=== PATIENT | female | born 1990 | race Caucasian/White ===

== ENCOUNTER 2020-09-03 07:20 | Outpatient (CLI) | payer MEDICAID ==
[~2020-09-03] VITALS: Ht 172.7 cm; Wt 91.0 kg
[~2020-09-03 07:20] MED LIST: CPR500T PO; METR500T PO; ONDAN4ODT PO; PREN1TAB39
--- NOTE | 2020-09-03 07:40 | NUR ---
BRAD HOWELL presented to unit via ambulation from ED, accompanied by S.O., with c/o LEAKING FLUID,. BRAD HOWELL weighed, gowned, voided, and to bed. EFHM and TOCO applied, VS taken. BRAD HOWELL oriented to bed controls, call light, TV, heat, and A/C controls. Dr. Mcgraw on unit, notified of pt arrival and c/o leaking fluid. familiar with pt and expecting phone call with update.
[2020-09-03 08:00] VITALS: BP 127/77
--- NOTE | 2020-09-03 08:26 | NUR ---
Notified Dr Mcgraw per phone of cervical exam of 2 cms., mild contractions approximately 5 minutes apart - pt does not feel them. Will watch an additional hour , recheck, UA and call physician. 0942 Dr Mcgraw notified per phone of unchanged cervical exam by Esteban Christian RN and UA results. Ordered IV fluids and continue to observe. IV attempted x 2. Pt complaining of pain from IV sticks and does not want IV. 1056 Dr Mcgraw notified of the above. He will see her at noon. 1230 Dr Mcgraw present - 3 cms.. Pt does not want to be induced. Having only occasional contractions. Physician will re-check pt later in afternoon. pattern reassuring with baseline of 140's and accelerations. 1420 Dr Mcgraw present - SVE unchanged. Plans to discharge.
[2020-09-03 08:40] LABS: BILIRUBIN,URINE NEGATIVE (NEGATIVE); CLARITY,URINE CLEAR; COLOR,URINE YELLOW; GLUCOSE, URINE (UA) NEGATIVE (NEGATIVE); KETONES,URINE NEGATIVE (NEGATIVE); LEUKOCYTE ESTERASE ,URINE NEGATIVE (NEGATIVE); NITRITE,URINE NEGATIVE (NEGATIVE); PROTEIN,URINE NEGATIVE (NEGATIVE)
[2020-09-03 08:49] LABS: BACTERIA,URINE MODERATE /HPF
[2020-09-03] MEDS ORDERED: D5 LR IV SOLUTION 1,000 ML IV SCH ×2 (10:00→11:00)
[2020-09-03] MEDS ORDERED: D5 LR IV SOLUTION 1,000 ML IV ONE (10:02)
[2020-09-03 13:05] VITALS: BP 134/65
[2020-09-03] MEDS ORDERED: PREN1TAB79 PO (14:39)
--- NOTE | 2020-09-03 14:42 | NUR ---
Outpt home instructions given. Pt verbalized understanding. Ambulating to exit with S.O.
== END 2020-09-03 14:42 | disposition home or self-care (01) ==
LOC: WSo 07:20 → LDRP 07:21 → WSo 14:42
PROVIDERS: ATTEND Obstetrics & Gynecology
DX: O42.92 Full-term premature rupture of membranes, unspecified as to length of time between rupture and onset of labor (principal); Z3A.38 38 weeks gestation of pregnancy
CPT/HCPCS: 81000; 87088

== ENCOUNTER 2020-09-09 23:33 | Outpatient (CLI) | payer MEDICAID ==
[~2020-09-09] VITALS: Ht 170.2 cm; Wt 91.7 kg
[~2020-09-09 23:33] MED LIST changes: +PREN1TAB79 PO
--- NOTE | 2020-09-09 23:40 | NUR ---
BRAD HOWELL presented to unit via wc from ED, accompanied by adult male , with c/o INDUCTION, pt is not scheduled and came in on her own.Pt to be treated as op until further orders from physician. BRAD HOWELL weighed, gowned, voided, and to bed. EFHM and TOCO applied, VS taken. BRAD HOWELL oriented to bed controls, call light, TV, heat, and A/C controls. above and further assessments completed per this rn.
--- NOTE | 2020-09-10 | NUR ---
notified of pt arrival, gestation, request for induction at this time, pt denies feeling ctx, no ctx have been noted as of yet, sve 3.5cm as in office yesterday. Orders for nst and discharge and to educate pt to call office in am for scheduling of induction.
[2020-09-10 00:11] VITALS: BP 131/75
[2020-09-10 00:13] VITALS: BP 131/75
--- NOTE | 2020-09-10 00:19 | NUR ---
Discharge packet given and explained, understanding voiced, pt aware to call office in am.
[2020-09-10 00:20] VITALS: BP 131/75
--- NOTE | 2020-09-10 00:25 | NUR ---
Pt ambulatory off unit at this time accompanied by adult male.
--- NOTE | 2020-09-10 07:58 | Physician Query-Final Dx ---
KATHLEEN BARRERA 09/10/20 0758: Clinic Account Progress/Dx Physician Query: Please give diagnosis Please include # weeks gestation Date of Service Sep 09, 2020 at 23:33 NIRMAL PERAZA MD 09/10/20 0836: Clinic Account Progress/Dx DIAGNOSIS: Diagnosis 39 WEEKS - FALSE LABOR KATHLEEN BARRERA Sep 10, 2020 07:58 NIRMAL PERAZA MD Sep 10, 2020 08:36
[2020-09-11] MEDS ORDERED: OXYC1TAB87 PO (08:26)
[2020-09-11] MEDS ORDERED: DOCU-143 PO (08:26)
[2020-09-11] MEDS ORDERED: IBUP-1780 PO (08:26)
== END 2020-09-10 00:25 | disposition home or self-care (01) ==
LOC: WSo 23:33 → LDRP 23:34 → WSo 09-10 00:25
PROVIDERS: ATTEND Obstetrics & Gynecology
DX: O47.1 False labor at or after 37 completed weeks of gestation (principal); Z3A.39 39 weeks gestation of pregnancy
CPT/HCPCS: 99212

== ENCOUNTER 2020-09-10 16:24 | Inpatient (IN) | payer MEDICAID ==
[2020-09-10] VITALS (7 sets, daily range): BP systolic 127–150; BP diastolic 57–123
[~2020-09-10] VITALS: Ht 170.2 cm; Wt 91.5 kg
--- NOTE | 2020-09-10 16:13 | NUR ---
BRAD HOWELL presented to unit via AMB from HOME, accompanied by S.O., with c/o INDUCTION. BRAD HOWELL weighed, gowned, voided, and to bed. 1634 EF and TOCO applied, VS taken. BRAD HOWELL oriented to bed controls, call light, TV, heat, and A/C controls.
[2020-09-10] MEDS: D5 LR IV SOLUTION 1,000 ML IV SCH ×2 (16:55→23:50)
[2020-09-10 17:01] LABS: BASOPHILS % (AUTO) 0 % (0-10); EOSINOPHILS % (AUTO) 0 % (0-10); HEMATOCRIT 28 % (35-52); HEMOGLOBIN 8.2 g/dL (11.5-16.0); LYMPHOCYTES # (AUTO) 2.5 10^3/uL (1.0-4.0); LYMPHOCYTES % (AUTO) 22 % (12-44); MEAN CORPUSCULAR HEMOGLOBIN 21 pg (25-34); MEAN CORPUSCULAR HGB CONC 29 g/dL (32-36); MEAN CORPUSCULAR VOLUME 73 fL (80-99); MEAN PLATELET VOLUME 10.5 fL (9.0-12.2); MONOCYTES # (AUTO) 0.6 10^3/uL (0.0-1.0); MONOCYTES % (AUTO) 5 % (0-12); NEUTROPHILS # (AUTO) 8.3 10^3/uL (1.8-7.8); NEUTROPHILS % (AUTO) 72 % (42-75); PLATELET COUNT 273 10^3/uL (130-400); WHITE BLOOD COUNT 11.6 10^3/uL (4.3-11.0)
--- NOTE | 2020-09-10 17:01 | History & Physical ---
History and Physical Date Seen by Provider: Sep 10, 2020 Time Seen by Provider: 16:57 This patient is a 30-year-old 3 para 1 A1 white female who presents with complaint of contractions pain and pressure. She was directed to labor and delivery by my office for observation and induction of labor. Patient's social history is significant for her father currently on hospice with very limited time remaining in his life. This patient would like for her father to see his grand child before he . This patient is past 39 weeks gestation and has a very favorable cervix. She denies rupture membranes or bleeding. Her GBS culture was negative. Allergies are none Medications are vitamins Medical social and surgical history is all per the antepartum record HEENT exam is normal Neck is supple no lymphadenopathy no thyromegaly Abdomen is gravid soft nontender nondistended Extremities show no clubbing cyanosis. There is no Homans' sign. Pelvic exam when last checked was 3 cm dilated greater than 50% effaced 0 station with a soft anterior cervix which equates to the Mckeon score of 8 or more Assessment and plan term at 39+ weeks gestation admitted for observation for labor and in the absence of spontaneous labor we will induce the patient in the morning. Patient has a poor social situation with her father on his bed. 39 weeks plus gestation admitted for labor and delivery plan for induction if not in spontaneous labor Allergies and Home Medications Allergies Coded Allergies: No Known Drug Allergies (Unverified , 08/02/09) Home Medications Vit W-Ca,Fe,FA(<1 mg) 1 Each Tablet, 1 EACH PO DAILY, (Reported) Patient Home Medication List Home Medication List Reviewed: Yes NIRMAL PERAZA MD Sep 10, 2020 17:01
[2020-09-11] VITALS (21 sets, daily range): BP systolic 96–178; BP diastolic 54–110
[2020-09-11] MEDS: OXYTOCIN PRE-MIX DRIP 500 ML IV SCH ×2 (06:34→07:01)
--- NOTE | 2020-09-11 08:21 | Progress Note ---
Standard Progress Note Progress Notes/Assess & Plan Date Seen by a Provider: Sep 11, 2020 Time Seen by a Provider: 08:19 Progress/Assessment & Plan Patient is without complaint. She has had occasional contractions throughout the night. She denies rupture membranes or bleeding. She reports that her father is stable Vital Signs Date Time Temp Pulse Resp B/P (MAP) Pulse Ox O2 Delivery O2 Flow Rate FiO2 09/11/20 06:40 36.4 88 18 116/60 (78) Room Air 09/11/20 05:40 77 18 103/54 (70) Room Air 09/11/20 04:40 112 18 96/57 (70) Room Air 09/11/20 03:40 66 18 117/64 (81) Room Air 09/11/20 02:40 76 18 98/59 (72) Room Air 09/11/20 01:40 75 18 101/58 (72) Room Air 09/11/20 00:35 82 20 124/59 (80) Room Air 09/10/20 23:40 36.2 82 20 147/57 (87) Room Air 09/10/20 22:40 99 20 127/70 (89) Room Air 09/10/20 21:50 36.5 102 20 136/62 (86) 98 Room Air 09/10/20 21:40 36.7 130 22 150/123 (132) Room Air 09/10/20 17:47 36.5 79 18 127/79 (95) 99 Room Air 09/10/20 17:00 36.4 95 18 97 Room Air 09/10/20 16:38 36.4 95 18 134/73 (93) 97 Room Air I & O 09/11/20 07:00 Intake Total 2000 ml Balance 2000 ml Vital signs are stable. Patient is afebrile. Pelvic exam shows the cervix is 3 to 4 cm dilated 80% effaced -1 to -2 station vertex with a bulging bag. Amniotomy is performed releasing clear fluid monitor shows normal heart rate pattern with occasional contractions Assessment and plan 39+ weeks gestation and early labor. Amniotomy is perf ormed and we will continue with Pitocin to promote labor and anticipate a vaginal delivery NIRMAL PERAZA MD Sep 11, 2020 08:21
[2020-09-11] MEDS ORDERED: DOCU-143 PO (08:26)
[2020-09-11] MEDS ORDERED: IBUP-1780 PO (08:26)
[2020-09-11] MEDS ORDERED: OXYC1TAB87 PO (08:26)
--- NOTE | 2020-09-11 08:26 | Discharge Inst-Surgical ---
Discharge Inst-Surgical Depart Medication/Instructions New, Converted or Re-Newed RX: RX on Chart Consults/Follow Up Patient Instructions: As directed Orders & Referrals Follow Up Appt: Call to make follow up appt. for patient in 4 weeks. Activity Per routine post vaginal delivery instructions. Please call in RX to patient pharmacy. Diet as tolerated Patient may shower or tub bathe as desired. Activity Activity as Tolerated: No NIRMAL PERAZA MD Sep 11, 2020 08:26
[2020-09-11] MEDS ORDERED: BUPIVACAINE 0.25% 30 ML (SENSORCAINE) VIAL ONE (08:54)
[2020-09-11] MEDS ORDERED: fentaNYL INJECTION 100 MCG/2 ML AMP ONE (08:55)
[2020-09-11] MEDS ORDERED: fentaNYL 2 mcg/ml BUPIVA 0.125 0 ML ONE (09:05)
[2020-09-11] MEDS ORDERED: LIDOCAINE/EPI 2% 1:200,00 (XYLOCAINE) 10 ML VIAL ONE (09:28)
[2020-09-11] MEDS ORDERED: BENZOCAINE/MENTHOL (DERMOPLAST) 60 ML CAN TP PRN (10:15)
[2020-09-11] MEDS ORDERED: KETOROLAC 30 MG/ML VIAL IVP SCH (10:15)
[2020-09-11] MEDS ORDERED: ONDANSETRON 4 MG/2 ML (SDV) Z0FRAN IVP PRN (10:15)
[2020-09-11] MEDS ORDERED: MEASLES,MUMPS,RUBELLA 1 EA INJ SC ONE (10:15)
[2020-09-11] MEDS ORDERED: OXYTOCIN PRE-MIX DRIP 500 ML IV SCH (10:15)
[2020-09-11] MEDS ORDERED: TETANUS,DIPTH,PERTUSS P/F (BOOSTRIX) 0.5 ML VIAL IM ONE (10:15)
[2020-09-11] MEDS: KETOROLAC 30 MG/ML VIAL IVP SCH ×2 (10:55→18:08)
[2020-09-11] MEDS ORDERED: WITCH HAZEL(TUCKS) 40 EA JAR ONE (11:18)
[2020-09-11] MEDS ORDERED: WITCH HAZEL(TUCKS) 40 EA JAR TOP PRN (11:30)
--- NOTE | 2020-09-11 11:40 | NUR ---
Pt assisted up to bathroom without incident. +void. Pericare demonstrated. Pad and panties changed. Fresh gown on. Pt assisted to wheelchair. Wheeled to room 312 accompanied by RNs, , and S.O. Pt and S.O. oriented to room and call light. packet explained. No questions or concerns voiced at this time
[2020-09-11] MEDS: oxyCODONE/APAP 5/325MG (PERCOCET 5) TABLET PO PRN ×2 (11:57→20:21)
[2020-09-11 12:23] LABS: AMPHETAMINE SCREEN, URINE NEGATIVE (NEGATIVE); BARBITURATE SCREEN URINE NEGATIVE (NEGATIVE); BENZODIAZEPINES SCREEN URINE NEGATIVE (NEGATIVE); CANNABINOID SCREEN, URINE NEGATIVE (NEGATIVE); COCAINE SCREEN URINE NEGATIVE (NEGATIVE); METHADONE STAT NEGATIVE (NEGATIVE); METHAMPHETAMINE SCREEN URINE S NEGATIVE (NEGATIVE); OPIATE SCREEN URINE NEGATIVE (NEGATIVE); OXYCODONE STAT NEGATIVE (NEGATIVE); PROPOXYPHENE STAT NEGATIVE (NEGATIVE); TRICYCLIC ANTIDEPRESSANTS SCRE NEGATIVE (NEGATIVE)
[2020-09-11] MEDS ORDERED: NICOTINE 21 MG (NICODERM) PATCH TD SCH (14:15)
--- NOTE | 2020-09-11 14:53 | OPERATIVE REPORT ---
DATE OF SERVICE: 09/11/2020 DELIVERY NOTE The patient delivered by term spontaneous vaginal delivery at 39+ weeks gestation a viable male infant with Apgars of 8 and 9 at 1 and 5 minutes respectively, weight of 5 pounds 14 ounces, time of 09:24 and a cord blood pH of 7.24. The was delivered over an intact perineum under no analgesia. The had a single nuchal cord that was easily released and the delivered atraumatically. The was bulb suctioned on delivery of the head and again on completion of delivery. Umbilical cord when pulseless was doubly clamped, father cut the cord, the baby was passed to mom's abdomen. Cord bloods were obtained. The placenta delivered spontaneously Perdomo. It was normal with a 3-vessel cord. The cervix, vagina, rectum, and perineum were examined and found intact, except for a 0.5 cm hymenal tear at the 5 o'clock position of the hymen. There was some pulsatile bleeding there, so a single [id number] suture of 3-0 Vicryl Rapide was placed under local analgesia at that point to effect hemostasis. On completion of the delivery and repair, sponge and needle counts were correct. Blood loss was around 300 mL. The patient tolerated the delivery well and remained in the LDR for recovery. The baby remained with the mom. Job ID: [id number] DocumentID: [id number] Dictated Date: 09/11/2020 10:30:33 [employer] Date: 09/11/2020 14:53:28 Dictated By: NIRMAL PERAZA MD
--- NOTE | 2020-09-11 20:15 | NUR ---
Pt put functional manager light. Pt just finished with stork dinner. Requesting pain meds. Assessment completed. pain meds given. Pt denies any further needs. will continue to monitor.
[2020-09-11] MEDS: DOCUSATE SODIUM 100 MG (COLACE) CAP PO SCH (20:21)
[2020-09-11] MEDS ORDERED: IBUPROFEN 800 MG (MOTRIN) TAB PO ONE (23:26)
[2020-09-11] MEDS: IBUPROFEN 800 MG (MOTRIN) TAB PO SCH (23:30)
[2020-09-12 01:39] VITALS: BP 108/72
[2020-09-12] MEDS ORDERED: CALCIUM CARBONATE 500 MG (TUMS) TAB.CHEW ONE (02:03)
[2020-09-12 05:01] VITALS: BP 100/57
[2020-09-12] MEDS ORDERED: CALCIUM CARBONATE 500 MG (TUMS) TAB.CHEW PO ONE (06:00)
[2020-09-12] MEDS: IBUPROFEN 800 MG (MOTRIN) TAB PO SCH (06:59)
--- NOTE | 2020-09-12 07:30 | NUR ---
Dr. Mcgraw here to see pt. Plan for discharge today
--- NOTE | 2020-09-12 07:36 | Progress Note ---
Standard Progress Note Progress Notes/Assess & Plan Date Seen by a Provider: Sep 12, 2020 Time Seen by a Provider: 07:34 Progress/Assessment & Plan Patient is without complaint. She has had occasional contractions throughout the night. She denies rupture membranes or bleeding. She reports that her father is stable Vital Signs Date Time Temp Pulse Resp B/P (MAP) Pulse Ox O2 Delivery O2 Flow Rate FiO2 09/11/20 06:40 36.4 88 18 116/60 (78) Room Air 09/11/20 05:40 77 18 103/54 (70) Room Air 09/11/20 04:40 112 18 96/57 (70) Room Air 09/11/20 03:40 66 18 117/64 (81) Room Air 09/11/20 02:40 76 18 98/59 (72) Room Air 09/11/20 01:40 75 18 101/58 (72) Room Air 09/11/20 00:35 82 20 124/59 (80) Room Air 09/10/20 23:40 36.2 82 20 147/57 (87) Room Air 09/10/20 22:40 99 20 127/70 (89) Room Air 09/10/20 21:50 36.5 102 20 136/62 (86) 98 Room Air 09/10/20 21:40 36.7 130 22 150/123 (132) Room Air 09/10/20 17:47 36.5 79 18 127/79 (95) 99 Room Air 09/10/20 17:00 36.4 95 18 97 Room Air 09/10/20 16:38 36.4 95 18 134/73 (93) 97 Room Air I & O 09/11/20 07:00 Intake Total 2000 ml Balance 2000 ml Vital signs are stable. Patient is afebrile. Pelvic exam shows the cervix is 3 to 4 cm dilated 80% effaced -1 to -2 station vertex with a bulging bag. Amniotomy is performed releasing clear fluid monitor shows normal heart rate pattern with occasional contractions Assessment and plan 39+ weeks gestation and early labor. Amniotomy is perf ormed and we will continue with Pitocin to promote labor and anticipate a vaginal delivery This patient is without complaint. She is ambulating, voiding, tolerating oral intake well and has good pain control. Vital Signs Date Time Temp Pulse Resp B/P (MAP) Pulse Ox O2 Delivery O2 Flow Rate FiO2 09/12/20 05:01 36.5 72 18 100/57 (71) 98 Room Air 09/12/20 01:39 36.6 85 18 108/72 (84) 98 Room Air 09/11/20 21:00 36.5 87 18 111/60 (77) 98 Room Air 09/11/20 16:00 36.8 82 18 140/59 (86) 98 Room Air 09/11/20 11:29 36.3 83 18 119/70 (86) Room Air 09/11/20 10:34 81 18 118/73 (88) Room Air 09/11/20 10:19 89 18 116/75 (89) Room Air 09/11/20 10:12 87 18 127/73 (91) Room Air 09/11/20 10:04 142 18 178/110 (132) Room Air 09/11/20 09:05 92 18 128/85 (99) Room Air 09/11/20 08:50 99 18 134/78 (96) Room Air 09/11/20 08:35 72 18 121/73 (89) Room Air 09/11/20 08:20 75 18 139/63 (88) Room Air 09/11/20 08:05 89 18 127/60 (82) Room Air I & O 09/12/20 07:00 Intake Total 500 ml Balance 500 ml Vital signs are stable. Patient is afebrile. Fundus is firm below the umbilicus nontender. Extremities show no clubbing or cyanosis. There is no Homans' sign. Assessment and plan day #1 doing well. Plan is for routine care and consider discharge home today Final Diagnosis 39-week spontaneous vaginal delivery NIRMAL PERAZA MD Sep 12, 2020 07:36
[2020-09-12] MEDS ORDERED: NICOTINE PATCH REMOVAL TP SCH (08:59)
[2020-09-12 09:33] VITALS: BP 135/86
[2020-09-12] MEDS: DOCUSATE SODIUM 100 MG (COLACE) CAP PO SCH (09:35)
[2020-09-12] MEDS: oxyCODONE/APAP 5/325MG (PERCOCET 5) TABLET PO PRN (09:35)
--- NOTE | 2020-09-12 11:15 | NUR ---
Discharge instructions explained to pt per Chang Quezada RN, with copy provided to pt along with narcotic script. Pt notified of other scripts to be called to [facility] pharmacy as well as follow up appt. Pt verbalizes understanding of instructions and signs to verify.
--- NOTE | 2020-09-12 11:48 | NUR ---
Prescriptions called into [facility] pharmacy per pt request
--- NOTE | 2020-09-12 12:35 | NUR ---
Pt ambulates off unit to private vehicle with all personal belongings accompanied by RN, S.o. and infant. No s/s of distress noted.
== END 2020-09-12 12:35 | disposition home or self-care (01) | DRG 807 ==
LOC: LDRP 16:24
PROVIDERS: ADMIT Obstetrics & Gynecology; ATTEND Obstetrics & Gynecology
PROC: 10E0XZZ Delivery of Products of Conception, External Approach (ICD-10-PCS; principal; 2020-09-11)
PROC: 10907ZC Drainage of Amniotic Fluid, Therapeutic from Products of Conception, Via Natural or Artificial Opening (ICD-10-PCS; 2020-09-11)
PROC: 3E033VJ Introduction of Other Hormone into Peripheral Vein, Percutaneous Approach (ICD-10-PCS; 2020-09-11)
PROC: 0HQ9XZZ Repair Perineum Skin, External Approach (ICD-10-PCS; 2020-09-11)
DX: O80 Encounter for full-term uncomplicated delivery (principal); Z37.0 Single live birth; Z3A.39 39 weeks gestation of pregnancy; O70.0 First degree perineal laceration during delivery
CPT/HCPCS: 36415; 80306; 85025; 86850; 86900; 86901; 87635

== ENCOUNTER 2021-07-26 09:56 | Emergency (ER) | payer MEDICAID ==
[~2021-07-26] VITALS: Ht 172.7 cm; Wt 58.9 kg
[~2021-07-26 09:56] MED LIST changes: +DOCU-143 PO; +IBUP-1780 PO; +OXYC1TAB87 PO
[2021-07-26] MEDS ORDERED: AMOX500T2 PO (10:39)
[2021-07-26] MEDS ORDERED: NAPR-1071 PO (10:39)
--- NOTE | 2021-07-26 10:40 | ED EENT ---
History of Present Illness General Chief Complaint: Dental Problems/Pain Stated Complaint: DENTAL PAIN Nursing Triage Note: Pt c/o right lower side dental pain onset a few months ago, worsening the last few days. Source: patient Exam Limitations: no limitations (SHAWNA GIBSON APRN) History of Present Illness Date Seen by Provider: Jul 26, 2021 Time Seen by Provider: 10:34 Initial Comments To ER wtih c/o right lower dental pain for a few months worse for a few days no swelling or fevers and has not yet sought care for this stating "mindy been procrastinating". Timing/Duration: gradual Severity: moderate Location: dental Prearrival Treatment: no prearrival treatment Associated Symptoms: denies symptoms (SHAWNA GIBSON APRN) Allergies and Home Medications Allergies Coded Allergies: No Known Drug Allergies (Unverified , 08/02/09) Patient Home Medication List Home Medication List Reviewed: Yes (SHAWNA GIBSON APRN) Amoxicillin (Amoxicillin) 500 Mg Tablet, 500 MG PO TID Prescribed by: SHAWNA GIBSON on 07/26/21 1039 Docusate Sodium (Colace) 100 Mg Capsule, 100 MG PO BID Prescribed by: NIRMAL ORDONEZ on 09/11/20 0826 Ibuprofen (Ibuprofen) 800 Mg Tablet, 800 MG PO Q6H PRN for PAIN Prescribed by: NIRMAL ORDONEZ on 09/11/20 0826 Naproxen (Naprosyn) 500 Mg Tablet, 500 MG PO BID PRN for PAIN-MODERATE (5-7) Prescribed by: SHAWNA GIBSON on 07/26/21 1039 Oxycodone HCl/Acetaminophen (Percocet 5-325 mg Tablet) 1 Each Tablet, 1 TAB PO Q4H Prescribed by: NIRMAL ORDONEZ on 09/11/20 0826 Vit W-Ca,Fe,FA(<1 mg) ( Vitamins) 1 Each Tablet, 1 EACH PO DAILY, (Reported) Entered as Reported by: ARPAN PEARSON on 09/03/20 1439 Review of Systems Review of Systems Constitutional: see HPI Eyes: No Symptoms Reported Ears: No Symptoms Reported Nose: no symptoms reported Mouth: see HPI Throat: no symptoms reported Respiratory: no symptoms reported Cardiovascular: no symptoms reported Musculoskeletal: no symptoms reported (SHAWNA GIBSON APRN) Past Zyiniyj-Lpqioi-Lvxprx Hx Patient Social History Tobacco Use?: Yes Tobacco type used: Cigarettes Smoking Status: Current Everyday Smoker Substance use?: No Alcohol Use?: No (SHAWNA GIBSON APRN) Immunizations Up To Date PED Vaccines UTD: Yes (SHAWNA GIBSON APRN) Seasonal Allergies Seasonal Allergies: No (SHAWNA GIBSON APRN) Past Medical History Surgeries: No Respiratory: No Cardiac: No Neurological: No Reproductive Disorders: No Female Reproductive Disorders: Denies Sexually Transmitted Disease: No HIV/AIDS: No Genitourinary: No Gastrointestinal: No Musculoskeletal: Yes (2017 RIGHT HAND FX) Fractures Endocrine: No HEENT: No Loss of Vision: Denies Hearing Impairment: Denies Cancer: No Psychosocial: Yes Depression Integumentary: No Blood Disorders: No (SHAWNA GIBSON APRN) Family Medical History Alcoholism 19 FATHER Arthritis 19 FATHER Asthma 19 FATHER Cardiovascular disease 19 FATHER Completed stroke 19 FATHER 19 MOTHER Coronary thrombosis 19 FATHER Diabetes mellitus 19 FATHER MATERNAL GRANDMOTHER MATERNAL GRANDFATHER PATERNAL GRANDFATHER FH: CHF (congestive heart failure) 19 MOTHER FH: thyroid cancer 19 FATHER Hypertension 19 FATHER 19 MOTHER Myocardial infarction 19 FATHER Neoplasm 19 FATHER Respiratory disorder 19 FATHER (COPD) Thyroid disease 19 FATHER Physical Exam Vital Signs Vital Signs - First Documented (ZEUS DIOR MD) Height, Weight, BMI Height: '" Weight: lbs. oz. kg; 19.00 BMI Method:Stated General Appearance: WD/WN, no apparent distress Eyes: bilateral eye normal inspection, bilateral eye PERRL, bilateral eye EOMI Ears: right ear other (TM obscured by cerumen); bilateral ear auricle normal, bilateral ear canal normal Mouth/Throat: other (multiple fractured and carious teeth without drainable abscess or palpable/visible swelling) Neck: non-tender, full range of motion Respiratory: no respiratory distress, no accessory muscle use Gastrointestinal: normal bowel sounds, non tender Neurologic/Psychiatric: alert, normal mood/affect, oriented x 3 Skin: normal color, warm/dry (SHAWNA GIBSON APRN) Progress/Results/Core Measures Results/Orders Vital Signs/I&O 07/26/21 07/26/21 07/26/21 10:08 10:08 10:47 Temp 36.7 36.7 36.7 Pulse 84 84 Resp 16 16 16 B/P (MAP) 130/85 (100) 130/85 130/85 Pulse Ox 98 100 98 O2 Delivery Room Air Room Air (ZEUS DIOR MD) Blood Pressure Mean: 100 Departure Impression Primary Impression: Dental caries Disposition: 01 HOME, SELF-CARE Condition: Stable Departure-Patient Inst. Decision time for Depature: 10:36 (SHAWNA GIBSON APRN) Referrals: NO,LOCAL PHYSICIAN (PCP/Family) Primary Care Physician Patient Instructions: Tooth Decay, Adult (DC) Add. Discharge Instructions: 1. Call a dentist of your choosing tomorrow morning. [facility] dental clinic can be reached at All discharge instructions reviewed with patient and/or family. Voiced understanding. Scripts Amoxicillin (Amoxicillin) 500 Mg Tablet 500 MG PO TID, #21 TAB Prov: SHAWNA GIBSON APRN 07/26/21 Naproxen (Naprosyn) 500 Mg Tablet 500 MG PO BID PRN for PAIN-MODERATE (5-7), #30 TAB 0 Refills Prov: SHAWNA GIBSON APRN 07/26/21 ATTENDING PHYSICIAN NOTE: I was physically present as attending physician in the emergency department during the care of this patient, but I was not directly involved in the decision making or delivery of care for this patient. (ZEUS DIOR MD) Images Mouth/Nose 1 - Caries, Fracture Tooth, Tenderness (SHAWNA GIBSON APRN) SHAWNA GIBSON APRN Jul 26, 2021 10:40 ZEUS DIOR MD Jul 26, 2021 17:53
[2021-07-26 10:47] VITALS: BP 130/85
== END 2021-07-26 10:47 | disposition home or self-care (01) ==
LOC: EDUNIT# 09:56 → ER 10:01
DX: K02.9 Dental caries, unspecified (principal); F17.210 Nicotine dependence, cigarettes, uncomplicated
CPT/HCPCS: 99282

== ENCOUNTER 2021-08-20 14:56 | Emergency (ER) | payer MEDICAID ==
[~2021-08-20] VITALS: Ht 170 cm; Wt 68.0 kg
[~2021-08-20 14:56] MED LIST changes: +AMOX500T2 PO; +NAPR-1071 PO
--- NOTE | 2021-08-20 15:12 | ED General ---
General Stated Complaint: MIGRAINE,FEVER,N/V Source of Information: Patient Exam Limitations: No Limitations (SHAWNA GIBSON APRN) History of Present Illness Date Seen by Provider: Aug 20, 2021 Time Seen by Provider: 15:09 Initial Comments To ER by private vehicle. She arrives to room 6 via wheelchair with a half eaten ham sandwich in the right hand and a 44 ounce drink in the left hand with reports of nausea vomiting, fever up to 101 and headache for 5 days. She thinks this is from a bad tooth on the bottom right side. No cough no body aches. She denies drug use. Timing/Duration: 2-3 Days Severity: Moderate Associated Systoms: Denies Symptoms (SHAWNA GIBSON APRN) Allergies and Home Medications Allergies Coded Allergies: No Known Drug Allergies (Unverified , 08/02/09) Patient Home Medication List Home Medication List Reviewed: Yes (SHAWNA GIBSON APRN) Amoxicillin (Amoxicillin) 500 Mg Tablet, 500 MG PO TID Prescribed by: SHAWNA GIBSON on 07/26/21 1039 Cephalexin (Cephalexin) 500 Mg Tablet, 500 MG PO TID Prescribed by: SHAWNA GIBSON on 08/20/21 1702 Docusate Sodium (Colace) 100 Mg Capsule, 100 MG PO BID Prescribed by: NIRMAL ORDONEZ on 09/11/20 0826 Ibuprofen (Ibuprofen) 800 Mg Tablet, 800 MG PO Q6H PRN for PAIN Prescribed by: NIRMAL ORDONEZ on 09/11/20 0826 Naproxen (Naprosyn) 500 Mg Tablet, 500 MG PO BID PRN for PAIN-MODERATE (5-7) Prescribed by: SHAWNA GIBSON on 07/26/21 1039 Oxycodone HCl/Acetaminophen (Percocet 5-325 mg Tablet) 1 Each Tablet, 1 TAB PO Q4H Prescribed by: NIRMAL ORDONEZ on 09/11/20 0826 Vit W-Ca,Fe,FA(<1 mg) ( Vitamins) 1 Each Tablet, 1 EACH PO DAILY, (Reported) Entered as Reported by: ARPAN PEARSON on 09/03/20 1439 Review of Systems Review of Systems Constitutional: see HPI, fever EENTM: see HPI Respiratory: no symptoms reported Cardiovascular: no symptoms reported Gastrointestinal: nausea, vomiting Genitourinary: no symptoms reported Musculoskeletal: no symptoms reported Skin: no symptoms reported Psychiatric/Neurological: Headache Hematologic/Lymphatic: No Symptoms Reported (SHAWNA GIBSON APRN) Past Anofmoh-Roxpqj-Nclgyn Hx Immunizations Up To Date PED Vaccines UTD: Yes (SHAWNA GIBSON APRN) Seasonal Allergies Seasonal Allergies: No (SHAWNA GIBSON APRN) Past Medical History Surgeries: No Respiratory: No Cardiac: No Neurological: No Reproductive Disorders: No Female Reproductive Disorders: Denies Sexually Transmitted Disease: No HIV/AIDS: No Genitourinary: No Gastrointestinal: No Musculoskeletal: Yes (2017 RIGHT HAND FX) Fractures Endocrine: No HEENT: No Loss of Vision: Denies Hearing Impairment: Denies Cancer: No Psychosocial: Yes Depression Integumentary: No Blood Disorders: No (SHAWNA GIBSON APRN) Family Medical History Alcoholism 19 FATHER Arthritis 19 FATHER Asthma 19 FATHER Cardiovascular disease 19 FATHER Completed stroke 19 FATHER 19 MOTHER Coronary thrombosis 19 FATHER Diabetes mellitus 19 FATHER MATERNAL GRANDMOTHER MATERNAL GRANDFATHER PATERNAL GRANDFATHER FH: CHF (congestive heart failure) 19 MOTHER FH: thyroid cancer 19 FATHER Hypertension 19 FATHER 19 MOTHER Myocardial infarction 19 FATHER Neoplasm 19 FATHER Respiratory disorder 19 FATHER (COPD) Thyroid disease 19 FATHER Physical Exam Vital Signs Vital Signs - First Documented 08/20/21 15:00 Temp 35.8 Pulse 113 Resp 16 B/P (MAP) 116/79 (91) Pulse Ox 100 O2 Delivery Room Air (ZEUS DIOR MD) Vital Signs Capillary Refill : (SHAWNA GIBSON APRN) Height, Weight, BMI Height: '" Weight: lbs. oz. kg; 19.00 BMI Method:Stated General Appearance: No Apparent Distress, WD/WN, Other (Alert and oriented. Begins sobbing uncontrollably with Covid swab. As mentioned she has a half eaten sandwich in her right hand and a 44 ounce fountain drink in her left hand. She has several coats and blankets with her. Her hair is dyed dark purple. She is wearing large dark black sunglasses.) Eyes: Bilateral Eye Normal Inspection, Bilateral Eye PERRL HEENT: PERRL/EOMI, TMs Normal, Other (Several missing teeth and carious teeth. No palpable abscess or facial swelling) Neck: No Lymphadenopathy (L), No Lymphadenopathy (R) Respiratory: No Accessory Muscle Use, No Respiratory Distress Cardiovascular: Normal Peripheral Pulses, Tachycardia Gastrointestinal: Normal Bowel Sounds, Non Tender, Soft Extremity: Normal Capillary Refill, Normal Inspection Neurologic/Psychiatric: Alert, Oriented x3 Skin: Normal Color, Warm/Dry (SHAWNA GIBSON APRN) Progress/Results/Core Measures Suspected Sepsis SIRS Temperature: Pulse: Respiratory Rate: Laboratory Tests 08/20/21 15:07: White Blood Count 6.0 Blood Pressure / Mean: Laboratory Tests 08/20/21 15:07: Creatinine 0.97, Platelet Count 315, Total Bilirubin 0.5 (SHAWNA GIBSON APRN) Results/Orders Lab Results Laboratory Tests Test 08/20/21 15:05 08/20/21 15:07 08/20/21 16:05 Range/Units Influenza Type A (RT-PCR) Not Detected Not Detecte Influenza Type B (RT-PCR) Not Detected Not Detecte SARS-CoV-2 RNA (RT-PCR) Not Detected Not Detecte White Blood Count 6.0 4.3-11.0 10^3/uL Red Blood Count 4.92 3.80-5.11 10^6/uL Hemoglobin 11.9 11.5-16.0 g/dL Hematocrit 39 35-52 % Mean Corpuscular Volume 79 L 80-99 fL Mean Corpuscular Hemoglobin 24 L 25-34 pg Mean Corpuscular Hemoglobin Concent 31 L 32-36 g/dL Red Cell Distribution Width 17.8 H 10.0-14.5 % Platelet Count 315 130-400 10^3/uL Mean Platelet Volume 9.4 9.0-12.2 fL Immature Granulocyte % (Auto) 0 % Neutrophils (%) (Auto) 69 42-75 % Lymphocytes (%) (Auto) 25 12-44 % Monocytes (%) (Auto) 6 0-12 % Eosinophils (%) (Auto) 0 0-10 % Basophils (%) (Auto) 0 0-10 % Neutrophils # (Auto) 4.1 1.8-7.8 X 10^3 Lymphocytes # (Auto) 1.5 1.0-4.0 X 10^3 Monocytes # (Auto) 0.3 0.0-1.0 X 10^3 Eosinophils # (Auto) 0.0 0.0-0.3 10^3/uL Basophils # (Auto) 0.0 0.0-0.1 10^3/uL Immature Granulocyte # (Auto) 0.0 0.0-0.1 10^3/uL Sodium Level 135 135-145 MMOL/L Potassium Level 3.8 3.6-5.0 MMOL/L Chloride Level 100 98-107 MMOL/L Carbon Dioxide Level 23 21-32 MMOL/L Anion Gap 12 5-14 MMOL/L Blood Urea Nitrogen 16 7-18 MG/DL Creatinine 0.97 0.60-1.30 MG/DL Estimat Glomerular Filtration Rate 67 BUN/Creatinine Ratio 16 Glucose Level 104 70-105 MG/DL Calcium Level 9.6 8.5-10.1 MG/DL Corrected Calcium 8.5-10.1 MG/DL Total Bilirubin 0.5 0.1-1.0 MG/DL Aspartate Amino Transf (AST/SGOT) 19 5-34 U/L Alanine Aminotransferase (ALT/SGPT) 10 0-55 U/L Alkaline Phosphatase 42 40-136 U/L C-Reactive Protein High Sensitivity 0.10 0.00-0.50 MG/DL Total Protein 8.7 H 6.4-8.2 GM/DL Albumin 4.8 H 3.2-4.5 GM/DL Urine Color YELLOW Urine Clarity CLEAR Urine pH 6.0 5-9 Urine Specific [place] 1.015 L 1.016-1.022 Urine Protein NEGATIVE NEGATIVE Urine Glucose (UA) NEGATIVE NEGATIVE Urine Ketones NEGATIVE NEGATIVE Urine Nitrite NEGATIVE NEGATIVE Urine Bilirubin NEGATIVE NEGATIVE Urine Urobilinogen 0.2 < = 1.0 MG/DL Urine Leukocyte Esterase TRACE H NEGATIVE Urine RBC (Auto) NEGATIVE NEGATIVE Urine RBC NONE /HPF Urine WBC 0-2 /HPF Urine Squamous Epithelial Cells 2-5 /HPF Urine Crystals NONE /LPF Urine Bacteria TRACE /HPF Urine Casts NONE /LPF Urine Mucus SMALL H /LPF Urine Culture Indicated NO Urine Test NEGATIVE NEGATIVE Urine Opiates Screen NEGATIVE NEGATIVE Urine Oxycodone Screen NEGATIVE NEGATIVE Urine Methadone Screen NEGATIVE NEGATIVE Urine Propoxyphene Screen NEGATIVE NEGATIVE Urine Barbiturates Screen NEGATIVE NEGATIVE Ur Tricyclic Antidepressants Screen NEGATIVE NEGATIVE Urine Phencyclidine Screen NEGATIVE NEGATIVE Urine Amphetamines Screen POSITIVE H NEGATIVE Urine Methamphetamines Screen POSITIVE H NEGATIVE Urine Benzodiazepines Screen NEGATIVE NEGATIVE Urine Cocaine Screen NEGATIVE NEGATIVE Urine Cannabinoids Screen NEGATIVE NEGATIVE (ZEUS DIOR MD) Medications Given in ED Current Medications Medications Dose Ordered Sig/Araceli Route Start Time Stop Time Status Last Admin Dose Admin Diphenhydramine HCl 25 mg ONCE ONCE IVP 08/20/21 15:15 08/20/21 15:16 DC 08/20/21 15:18 25 MG Ketorolac Tromethamine 15 mg ONCE ONCE IVP 08/20/21 15:15 08/20/21 15:16 DC 08/20/21 15:18 15 MG Prochlorperazine Edisylate 5 mg ONCE ONCE IV 08/20/21 15:15 08/20/21 15:16 DC 08/20/21 15:18 5 MG (ZEUS DIOR MD) Vital Signs/I&O 08/20/21 08/20/21 15:00 17:30 Temp 35.8 Pulse 113 84 Resp 16 16 B/P (MAP) 116/79 (91) 117/72 Pulse Ox 100 100 O2 Delivery Room Air Room Air (ZEUS DIOR MD) Vital Signs/I&O Capillary Refill : (SHAWNA GIBSON APRN) Diagnostic Imaging Diagonstic Imaging: CT Comments NAME: BRAD HOWELL [facility] REC#: [id number] PT STATUS: REG ER : 1990 PHYSICIAN: SHAWNA GIBSON APRN ADMIT DATE: 08/20/21/ER Draft Date of Exam:08/20/21 CT HEAD WO PROCEDURE: CT head without contrast. TECHNIQUE: Multiple contiguous axial images were obtained through the brain without the use of intravenous contrast. Auto Exposure Controls were utilized during the CT exam to meet ALARA standards for radiation dose reduction. INDICATION: 31-year-old female presents with severe migraine headaches. COMPARISONS: 05/19/2012. FINDINGS: Midline structures are not displaced. Lateral, third, and fourth ventricles are normal in size, shape, and anatomic position. There is no mass, mass effect, hydrocephalus, or hemorrhage. Tripathi-white differentiation is normal. There is no sulcal effacement. There are no abnormal extra-axial fluid collections or hemorrhage. Basilar cisterns appear normal. There is some mild cerebellar tonsillar ectopia, but no evidence of Chiari malformation. Sinuses, orbits, and mastoid air cells are unremarkable. Bone windows show no calvarial changes. IMPRESSION: Mild cerebellar tonsillar ectopia, a normal variation. Otherwise, unremarkable nonenhanced CT brain. If symptoms persist or warrant, an MRI brain may be of further value. Dictated on workstation # [id number] Dict: 08/20/21 1619 Trans: 08/20/21 1625 [id number] Interpreted by: DYLAN ANGEL MD Electronically signed by: (SHAWNA GIBSON APRN) Departure Communication (Admissions) 1701-feeling better. Would like to have some antibiotics for her right lower dental pain. Given the appearance of her teeth this is not an unreasonable request. I will send in a prescription for cephalexin. (SHAWNA GIBSON APRN) Impression Primary Impression: Headache Disposition: HOME, SELF-CARE Condition: Stable Departure-Patient Inst. Decision time for Depature: 16:23 (SHAWNA GIBSON APRN) Referrals: NO,LOCAL PHYSICIAN (PCP/Family) Primary Care Physician Patient Instructions: Headache, Adult (DC) Add. Discharge Instructions: 1. Return to ER for any concerns 2. Follow-up with your doctor this week for recheck. Scripts Cephalexin (Cephalexin) 500 Mg Tablet 500 MG PO TID, #21 TAB Prov: SHAWNA GIBSON APRN 08/20/21 ATTENDING PHYSICIAN NOTE: I was physically present as attending physician in the emergency department during the care of this patient, but I was not directly involved in the decision making or delivery of care for this patient. (ZEUS DIOR MD) SHAWNA GIBSON APRN Aug 20, 2021 15:12 ZEUS DIOR MD Aug 20, 2021 18:30
[2021-08-20] MEDS ORDERED: LACTATED RINGERS 1,000 ML IV SCH (15:15)
[2021-08-20] MEDS ORDERED: diphenhydrAMINE 50 MG/ML INJ (BENADRYL) IVP ONE (15:15)
[2021-08-20] MEDS ORDERED: PROCHLORPERAZINE 10 MG/2ML INJ (COMPAZINE) IV ONE (15:15)
[2021-08-20] MEDS ORDERED: KETOROLAC 30 MG/ML VIAL IVP ONE (15:15)
[2021-08-20 15:33] LABS: BASOPHILS % (AUTO) 0 % (0-10); EOSINOPHILS % (AUTO) 0 % (0-10); HEMATOCRIT 39 % (35-52); HEMOGLOBIN 11.9 g/dL (11.5-16.0); LYMPHOCYTES # (AUTO) 1.5 X 10^3 (1.0-4.0); LYMPHOCYTES % (AUTO) 25 % (12-44); MEAN CORPUSCULAR HEMOGLOBIN 24 pg (25-34); MEAN CORPUSCULAR HGB CONC 31 g/dL (32-36); MEAN CORPUSCULAR VOLUME 79 fL (80-99); MEAN PLATELET VOLUME 9.4 fL (9.0-12.2); MONOCYTES # (AUTO) 0.3 X 10^3 (0.0-1.0); MONOCYTES % (AUTO) 6 % (0-12); NEUTROPHILS # (AUTO) 4.1 X 10^3 (1.8-7.8); NEUTROPHILS % (AUTO) 69 % (42-75); PLATELET COUNT 315 10^3/uL (130-400)
[2021-08-20 15:44] LABS: ALBUMIN 4.8 GM/DL (3.2-4.5); CHLORIDE 100 MMOL/L (98-107); POTASSIUM 3.8 MMOL/L (3.6-5.0); SODIUM 135 MMOL/L (135-145)
[2021-08-20 15:45] LABS: CALCIUM 9.6 MG/DL (8.5-10.1)
[2021-08-20 15:46] LABS: GLUCOSE 104 MG/DL (70-105); TOTAL PROTEIN 8.7 GM/DL (6.4-8.2)
[2021-08-20 15:48] LABS: BILIRUBIN,TOTAL 0.5 MG/DL (0.1-1.0); CARBON DIOXIDE 23 MMOL/L (21-32)
[2021-08-20 15:50] LABS: ALKALINE PHOSPHATASE 42 U/L (40-136); CREATININE SERUM 0.97 MG/DL (0.60-1.30); GFR ESTIMATED 67
[2021-08-20 15:51] LABS: BUN/CREATININE RATIO 16
[2021-08-20 15:53] LABS: ALANINE AMINOTRANSFERASE 10 U/L (0-55)
[2021-08-20 16:14] LABS: BILIRUBIN,URINE NEGATIVE (NEGATIVE); CLARITY,URINE CLEAR; COLOR,URINE YELLOW; GLUCOSE, URINE (UA) NEGATIVE (NEGATIVE); KETONES,URINE NEGATIVE (NEGATIVE); LEUKOCYTE ESTERASE ,URINE TRACE (NEGATIVE); NITRITE,URINE NEGATIVE (NEGATIVE); PROTEIN,URINE NEGATIVE (NEGATIVE)
[2021-08-20 16:24] LABS: HCG,QUALITATIVE URINE NEGATIVE (NEGATIVE)
--- NOTE | 2021-08-20 16:26 | Diagnostic Imaging Report ---
PROCEDURE: CT head without contrast. TECHNIQUE: Multiple contiguous axial images were obtained through the brain without the use of intravenous contrast. Auto Exposure Controls were utilized during the CT exam to meet ALARA standards for radiation dose reduction. INDICATION: 31-year-old female presents with severe migraine headaches. COMPARISONS: 05/19/2012. FINDINGS: Midline structures are not displaced. Lateral, third, and fourth ventricles are normal in size, shape, and anatomic position. There is no mass, mass effect, hydrocephalus, or hemorrhage. Tripathi-white differentiation is normal. There is no sulcal effacement. There are no abnormal extra-axial fluid collections or hemorrhage. Basilar cisterns appear normal. There is some mild cerebellar tonsillar ectopia, but no evidence of Chiari malformation. Sinuses, orbits, and mastoid air cells are unremarkable. Bone windows show no calvarial changes. IMPRESSION: Mild cerebellar tonsillar ectopia, a normal variation. Otherwise, unremarkable nonenhanced CT brain. If symptoms persist or warrant, an MRI brain may be of further value. Dictated by: Dictated on workstation # [id number]
[2021-08-20 16:42] LABS: BACTERIA,URINE TRACE /HPF; WBC,URINE 0-2 /HPF
[2021-08-20 16:56] LABS: AMPHETAMINE SCREEN, URINE POSITIVE (NEGATIVE); BARBITURATE SCREEN URINE NEGATIVE (NEGATIVE); BENZODIAZEPINES SCREEN URINE NEGATIVE (NEGATIVE); CANNABINOID SCREEN, URINE NEGATIVE (NEGATIVE); COCAINE SCREEN URINE NEGATIVE (NEGATIVE); METHADONE STAT NEGATIVE (NEGATIVE); METHAMPHETAMINE SCREEN URINE S POSITIVE (NEGATIVE); OPIATE SCREEN URINE NEGATIVE (NEGATIVE); OXYCODONE STAT NEGATIVE (NEGATIVE); PROPOXYPHENE STAT NEGATIVE (NEGATIVE); TRICYCLIC ANTIDEPRESSANTS SCRE NEGATIVE (NEGATIVE)
[2021-08-20] MEDS ORDERED: CEPH500T PO (17:02)
[2021-08-20 17:30] VITALS: BP 117/72
== END 2021-08-20 17:30 | disposition home or self-care (01) ==
LOC: EDUNIT# 14:56 → ER 14:57
DX: R51.9 Headache, unspecified (principal); R00.0 Tachycardia, unspecified; Z20.822 Contact with and (suspected) exposure to COVID-19
CPT/HCPCS: 36415; 70450; 80053; 80306; 81000; 84703; 85025; 86141; 87636

== ENCOUNTER 2022-03-14 17:18 | Emergency (ER) | payer MEDICAID ==
[~2022-03-14] VITALS: Ht 170 cm; Wt 68.0 kg
[~2022-03-14 17:18] MED LIST changes: +CEPH500T PO
[2022-03-14 17:28] VITALS: BP 115/76
--- NOTE | 2022-03-14 17:52 | ED GU-Female ---
General Chief Complaint: - Reproductive Stated Complaint: STUCK TAMPON Nursing Triage Note: PT TO ED W/ C/O POSS TAMPON STUCK IN VAGINA ONSET X1-2 DAYS. PT REPORTS SHE THINKS IT "SUCKED AGAINST THE WALL OF THE VAGINA". NO OTHER C/O VOICED. PT ET SIGNIFICANT OTHER REQUESTING WORK NOTES THEY BOTH CALLED IN TO COME TO THE ED Source: patient Exam Limitations: no limitations History of Present Illness Date Seen by Provider: Mar 14, 2022 Time Seen by Provider: 17:50 Initial Comments Patient is a 32-year-old female presents ED for left lower quad abdominal pain. Sharp pain over the past 2 days described as sharp. Intermittent yesterday but became constant today. She is currently on her menstrual cycle. She reports light bleeding. Started menstrual cycle 4 to 5 days ago. She placed a tampon 2 or 3 days ago but believes she removed the tampon but is unsure. She denies of any vaginal discharge, fever, chills, back pain. She denies control. Last menstrual cycle was 1 month ago. No history of previous abdominal surgery. Denies chest pain, shortness of breath, headache, dizziness, dysuria, increased urine frequency Allergies and Home Medications Allergies Coded Allergies: No Known Drug Allergies (Unverified , 08/02/09) Patient Home Medication List Home Medication List Reviewed: Yes Amoxicillin (Amoxicillin) 500 Mg Tablet, 500 MG PO TID Prescribed by: SHAWNA GIBSON on 07/26/21 103 Cephalexin (Cephalexin) 500 Mg Tablet, 500 MG PO TID Prescribed by: SHAWNA GIBSON on 08/20/21 170 Docusate Sodium (Colace) 100 Mg Capsule, 100 MG PO BID Prescribed by: NIRMAL ORDONEZ on 09/11/20 08 Ibuprofen (Ibuprofen) 800 Mg Tablet, 800 MG PO Q6H PRN for PAIN Prescribed by: NIRMAL ORDONEZ on 09/11/20 08 Metronidazole (Metronidazole) 500 Mg Tablet, 500 MG PO BID Prescribed by: LAURY CUNNINGHAM on 03/14/221938 Naproxen (Naprosyn) 500 Mg Tablet, 500 MG PO BID PRN for PAIN-MODERATE (5-7) Prescribed by: SHAWNA GIBSON on 07/26/21 103 Oxycodone HCl/Acetaminophen (Percocet 5-325 mg Tablet) 1 Each Tablet, 1 TAB PO Q4H Prescribed by: NIRMAL ORDONEZ on 09/11/20 0877 Vit W-Ca,Fe,FA(<1 mg) ( Vitamins) 1 Each Tablet, 1 EACH PO DAILY, (Reported) Entered as Reported by: ARPAN PEARSON on 09/03/20 9986 Review of Systems Review of Systems Constitutional: No chills, No diaphoresis, No malaise, No weakness EENTM: No hearing loss, No ear pain, No blurred vision, No double vision Respiratory: No cough, No dyspnea on exertion, No phlegm, No short of breath Cardiovascular: No chest pain Gastrointestinal: abdominal pain; No diarrhea, No nausea, No vomiting Genitourinary: denies burning, denies discharge Musculoskeletal: No back pain, No joint pain Skin: No change in color, No change in hair/nails Psychiatric/Neurological: Denies Depressed, Denies Emotional Problems All Other Systemes Reviewed Negative Unless Noted: Yes Past Geqmzxe-Ewkdsf-Mswxmk Hx Patient Social History Tobacco Use?: Yes Tobacco type used: Cigarettes Smoking Status: Current Everyday Smoker Use of E-Cig and/or Vaping dev: No Substance use?: No Alcohol Use?: No Pt feels they are or have been: No Immunizations Up To Date PED Vaccines UTD: Yes First/Initial COVID19 Vaccinat: N/A Seasonal Allergies Seasonal Allergies: No Past Medical History Surgeries: No Respiratory: No Cardiac: No Neurological: No Reproductive Disorders: No Female Reproductive Disorders: Denies Sexually Transmitted Disease: No HIV/AIDS: No Genitourinary: No Gastrointestinal: No Musculoskeletal: Yes (2017 RIGHT HAND FX) Fractures Endocrine: No HEENT: No Loss of Vision: Denies Hearing Impairment: Denies Cancer: No Psychosocial: Yes Depression Integumentary: No Blood Disorders: No Family Medical History Alcoholism 19 FATHER Arthritis 19 FATHER Asthma 19 FATHER Cardiovascular disease 19 FATHER Completed stroke 19 FATHER 19 MOTHER Coronary thrombosis 19 FATHER Diabetes mellitus 19 FATHER MATERNAL GRANDMOTHER MATERNAL GRANDFATHER PATERNAL GRANDFATHER FH: CHF (congestive heart failure) 19 MOTHER FH: thyroid cancer 19 FATHER Hypertension 19 FATHER 19 MOTHER Myocardial infarction 19 FATHER Neoplasm 19 FATHER Respiratory disorder 19 FATHER (COPD) Thyroid disease 19 FATHER Physical Exam Vital Signs Vital Signs - First Documented 03/14/22 17:28 Temp 36.0 Pulse 94 Resp 20 B/P (MAP) 115/76 (89) Pulse Ox 99 O2 Delivery Room Air Capillary Refill : Less Than 3 Seconds Height, Weight, BMI Height: '" Weight: lbs. oz. kg; 23.00 BMI Method:Stated General Appearance: WD/WN, no apparent distress HEENT: PERRL/EOMI, normal ENT inspection, TMs normal, pharynx normal Neck: non-tender, full range of motion, supple, normal inspection Cardiovascular: regular rate, rhythm, no edema, no gallop, no JVD Respiratory: chest non-tender, lungs clear, normal breath sounds, no accessory muscle use Gastrointestinal: normal bowel sounds, soft, no organomegaly, tenderness (Left lower quadrant tenderness on palpation) Back: normal inspection, no CVA tenderness, no vertebral tenderness Extremities: normal range of motion, non-tender, normal inspection, no pedal edema, no calf tenderness 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, no motor/sensory deficits, alert, normal mood/affect, oriented x 3 Skin: normal color, warm/dry Progress/Results/Core Measures Suspected Sepsis SIRS Temperature: Pulse: 94 Respiratory Rate: 20 Laboratory Tests 03/14/22 18:05: White Blood Count 5.4 Blood Pressure 115 /76 Mean: 89 Laboratory Tests 03/14/22 18:05: Creatinine 1.07, Platelet Count 296, Total Bilirubin 0.4 Results/Orders Lab Results Laboratory Tests Test 03/14/22 18:05 03/14/22 18:20 03/14/22 19:20 Range/Units White Blood Count 5.4 4.3-11.0 10^3/uL Red Blood Count 4.18 3.80-5.11 10^6/uL Hemoglobin 10.1 L 11.5-16.0 g/dL Hematocrit 34 L 35-52 % Mean Corpuscular Volume 80 80-99 fL Mean Corpuscular Hemoglobin 24 L 25-34 pg Mean Corpuscular Hemoglobin Concent 30 L 32-36 g/dL Red Cell Distribution Width 18.3 H 10.0-14.5 % Platelet Count 296 130-400 10^3/uL Mean Platelet Volume 9.1 9.0-12.2 fL Immature Granulocyte % (Auto) 0 % Neutrophils (%) (Auto) 47 42-75 % Lymphocytes (%) (Auto) 43 12-44 % Monocytes (%) (Auto) 7 0-12 % Eosinophils (%) (Auto) 2 0-10 % Basophils (%) (Auto) 0 0-10 % Neutrophils # (Auto) 2.5 1.8-7.8 10^3/uL Lymphocytes # (Auto) 2.3 1.0-4.0 10^3/uL Monocytes # (Auto) 0.4 0.0-1.0 10^3/uL Eosinophils # (Auto) 0.1 0.0-0.3 10^3/uL Basophils # (Auto) 0.0 0.0-0.1 10^3/uL Immature Granulocyte # (Auto) 0.0 0.0-0.1 10^3/uL Sodium Level 141 135-145 MMOL/L Potassium Level 3.6 3.6-5.0 MMOL/L Chloride Level 104 98-107 MMOL/L Carbon Dioxide Level 24 21-32 MMOL/L Anion Gap 13 5-14 MMOL/L Blood Urea Nitrogen 23 H 7-18 MG/DL Creatinine 1.07 0.60-1.30 MG/DL Estimat Glomerular Filtration Rate 70 BUN/Creatinine Ratio 21 Glucose Level 102 70-105 MG/DL Calcium Level 9.3 8.5-10.1 MG/DL Corrected Calcium 9.1 8.5-10.1 MG/DL Total Bilirubin 0.4 0.1-1.0 MG/DL Aspartate Amino Transf (AST/SGOT) 15 5-34 U/L Alanine Aminotransferase (ALT/SGPT) 14 0-55 U/L Alkaline Phosphatase 33 L 40-136 U/L Total Protein 7.4 6.4-8.2 GM/DL Albumin 4.3 3.2-4.5 GM/DL Urine Color YELLOW Urine Clarity CLEAR Urine pH 6.0 5-9 Urine Specific [place] >=1.030 1.016-1.022 Urine Protein NEGATIVE NEGATIVE Urine Glucose (UA) NEGATIVE NEGATIVE Urine Ketones NEGATIVE NEGATIVE Urine Nitrite NEGATIVE NEGATIVE Urine Bilirubin NEGATIVE NEGATIVE Urine Urobilinogen 0.2 < = 1.0 MG/DL Urine Leukocyte Esterase NEGATIVE NEGATIVE Urine RBC (Auto) NEGATIVE NEGATIVE Urine RBC NONE /HPF Urine WBC 0-2 /HPF Urine Squamous Epithelial Cells 2-5 /HPF Urine Renal Epithelial Cells NONE /HPF Urine Crystals NONE /LPF Urine Bacteria NEGATIVE /HPF Urine Casts NONE /LPF Urine Mucus LARGE H /LPF Urine Culture Indicated NO Urine Test NEGATIVE NEGATIVE Micro Results Microbiology 03/14/22 Wet Prep - Final, Complete My Orders Orders - IMTIAZ CAO Cbc With Automated Diff (03/14/22 17:48) Comprehensive Metabolic Panel (03/14/22 17:48) Ua Culture If Indicated (03/14/22 17:48) Hcg,Qualitative Urine (03/14/22 17:48) Wet Prep (03/14/22 17:48) Chlamydia Trachomatis Swab (03/14/22 17:48) Neisseria Gonorrhea Swab (03/14/22 17:48) Ct Abdomen/Pelvis Wo (03/14/22 18:44) Vital Signs/I&O 03/14/22 17:28 Temp 36.0 Pulse 94 Resp 20 B/P (MAP) 115/76 (89) Pulse Ox 99 O2 Delivery Room Air Capillary Refill : Less Than 3 Seconds Blood Pressure Mean: 89 Departure Communication (PCP) Patient urinalysis was negative for infection or . She was initially c oncern for possible tampon but after talking to her she states she did remove a tampon. Patient is a poor historian. she agreed to a pelvic exam which did not show any evidence of foreign body. Some discharge noted. Tested positive for bacterial vaginosis with some clue cells. She is not concern for sexual transmitted infection but cultures pending. Will treat with Flagyl. Patient lab work was otherwise unremarkable. She started having pain in the left lower quadrant to radiation to the left flank. Rule out potential nephrolithiasis or other acute abnormality. CT scan showed fecal stasis. She states she is having bowel movements at a small amount. She refused rectal exam to rule out impaction. Discussed the importance of high-fiber diet drinking plenty of fluids and starting a laxative. This was discussed in discharge such as MiraLAX or Dulcolax, magnesium citrate if no improvement may consider Fleet enema. Avoid fatty foods. Importance of water and exercise. She acknowledges. If any worsening symptoms return back to ED for further evaluation. Follow-up your PCP in 2 to [address] scan did note gastric contents. She states she just ate right before arrival. No vomiting. Impression Primary Impression: Constipation Disposition: 01 HOME, SELF-CARE Condition: Stable Departure-Patient Inst. Decision time for Depature: 19:38 Referrals: [facility] (PCP/Family) Primary Care Physician Patient Instructions: Constipation, Adult (DC) Add. Discharge Instructions: Recommend trying MiraLAX, Dulcolax. May try magnesium citrate bottle. If no success in 1 or 2 days may try Fleet enema. All discharge instructions reviewed with patient and/or family. Voiced u nderstanding. Scripts Metronidazole (Metronidazole) 500 Mg Tablet 500 MG PO BID for 7 Days, #14 TAB Prov: IMTIAZ CAO 03/14/22 Work/School Note: Work Release Form Return to Work: Mar 16, 2022 IMTIAZ CAO Mar 14, 2022 17:52
[2022-03-14 18:15] LABS: BASOPHILS % (AUTO) 0 % (0-10); EOSINOPHILS # (AUTO) 0.1 10^3/uL (0.0-0.3); EOSINOPHILS % (AUTO) 2 % (0-10); HEMATOCRIT 34 % (35-52); HEMOGLOBIN 10.1 g/dL (11.5-16.0); LYMPHOCYTES # (AUTO) 2.3 10^3/uL (1.0-4.0); LYMPHOCYTES % (AUTO) 43 % (12-44); MEAN CORPUSCULAR HEMOGLOBIN 24 pg (25-34); MEAN CORPUSCULAR HGB CONC 30 g/dL (32-36); MEAN CORPUSCULAR VOLUME 80 fL (80-99); MEAN PLATELET VOLUME 9.1 fL (9.0-12.2); MONOCYTES # (AUTO) 0.4 10^3/uL (0.0-1.0); MONOCYTES % (AUTO) 7 % (0-12); NEUTROPHILS # (AUTO) 2.5 10^3/uL (1.8-7.8); NEUTROPHILS % (AUTO) 47 % (42-75); PLATELET COUNT 296 10^3/uL (130-400); WHITE BLOOD COUNT 5.4 10^3/uL (4.3-11.0)
[2022-03-14 18:25] LABS: ALBUMIN 4.3 GM/DL (3.2-4.5)
[2022-03-14 18:26] LABS: POTASSIUM 3.6 MMOL/L (3.6-5.0)
[2022-03-14 18:27] LABS: CALCIUM 9.3 MG/DL (8.5-10.1)
[2022-03-14 18:28] LABS: TOTAL PROTEIN 7.4 GM/DL (6.4-8.2)
[2022-03-14 18:30] LABS: BILIRUBIN,TOTAL 0.4 MG/DL (0.1-1.0)
[2022-03-14 18:32] LABS: CREATININE SERUM 1.07 MG/DL (0.60-1.30)
--- NOTE | 2022-03-14 19:21 | Diagnostic Imaging Report ---
PROCEDURE: CT abdomen and pelvis without contrast. TECHNIQUE: Multiple contiguous axial images were obtained through the abdomen and pelvis without the use of intravenous contrast. Auto Exposure Controls were utilized during the CT exam to meet ALARA standards for radiation dose reduction. INDICATION: Left lower quadrant pain. FINDINGS: Lung bases are clear. Liver appears normal. Gallbladder is decompressed. There is a large amount of food residue in the stomach. Pancreas is unremarkable. Spleen is not enlarged. Kidneys and adrenals appear normal. Small bowel is not dilated. There is a large amount of stool in the colon. Uterus is upper limits of normal in size. Adnexa appear normal. There is no intraperitoneal free air or free fluid. Urinary bladder is normal. There is no evidence for appendicitis. No CT evidence for retained tampon in the vaginal canal. IMPRESSION: Fecal stasis. Retained gastric contents. No acute abnormality is seen. Dictated by: Dictated on workstation # [id number]
[2022-03-14 19:27] LABS: BILIRUBIN,URINE NEGATIVE (NEGATIVE); CLARITY,URINE CLEAR; COLOR,URINE YELLOW; GLUCOSE, URINE (UA) NEGATIVE (NEGATIVE); KETONES,URINE NEGATIVE (NEGATIVE); LEUKOCYTE ESTERASE ,URINE NEGATIVE (NEGATIVE); NITRITE,URINE NEGATIVE (NEGATIVE); PROTEIN,URINE NEGATIVE (NEGATIVE)
[2022-03-14 19:36] LABS: BACTERIA,URINE NEGATIVE /HPF; WBC,URINE 0-2 /HPF
[2022-03-14] MEDS ORDERED: METR-145 PO (19:39)
== END 2022-03-14 19:48 | disposition home or self-care (01) ==
LOC: EDUNIT# 17:18 → ER 17:20
DX: K59.00 Constipation, unspecified (principal); N76.0 Acute vaginitis; B96.89 Other specified bacterial agents as the cause of diseases classified elsewhere; F17.210 Nicotine dependence, cigarettes, uncomplicated; Z32.02 Encounter for pregnancy test, result negative
CPT/HCPCS: 36415; 74176; 80053; 81000; 84703; 85025; 87210; 87491; 87591

== ENCOUNTER 2022-11-10 03:33 | Emergency (ER) | payer MEDICAID ==
[~2022-11-10] VITALS: Ht 170 cm; Wt 70.3 kg
[~2022-11-10 03:33] MED LIST changes: +METR-145 PO
[2022-11-10] MEDS ORDERED: RT-ALBUTEROL HFA 8.5 GM INHALER IH STA (04:38)
--- NOTE | 2022-11-10 04:46 | ED General ---
General Chief Complaint: Fever-Adult/Adol Stated Complaint: CHILLS/BODYACHES/SOA/CHEST PAIN/FEVER/WEAK Nursing Triage Note: PT AMBULATES TO ROOM WITHOUT ASSISTANCE OF ER STAFF; PT A&OX4; PT REPORTS FEELING "ILL" FOR 3-4 DAYS; PT REPORTS HAS BEEN ILL WELL PT REPORTS INCREASING COUGH, SORE THROAT, SOA WITH EXERTION, SINUS CONGESTION, AND FEVER; PT IS CONCERNED THAT SHE MAY HAVE THE FLU OR COVID Source of Information: Patient Exam Limitations: No Limitations History of Present Illness Date Seen by Provider: Nov 10, 2022 Time Seen by Provider: 03:56 Allergies and Home Medications Allergies Coded Allergies: No Known Drug Allergies (Unverified , 08/02/09) Patient Home Medication List Amoxicillin (Amoxicillin) 500 Mg Tablet, 500 MG PO TID Prescribed by: SHAWNA GIBSON on 07/26/21 103 Cephalexin (Cephalexin) 500 Mg Tablet, 500 MG PO TID Prescribed by: SHAWNA GIBSON on 08/20/21 1702 Docusate Sodium (Colace) 100 Mg Capsule, 100 MG PO BID Prescribed by: NIRMAL ORDONEZ on 09/11/20 08 Ibuprofen (Ibuprofen) 800 Mg Tablet, 800 MG PO Q6H PRN for PAIN Prescribed by: NIRMAL ORDONEZ on 09/11/20 08 Metronidazole (Metronidazole) 500 Mg Tablet, 500 MG PO BID Prescribed by: LAURY CUNNINGHAM on 03/14/22 193 Naproxen (Naprosyn) 500 Mg Tablet, 500 MG PO BID PRN for PAIN-MODERATE (5-7) Prescribed by: SHAWNA GIBSON on 07/26/21 103 Oxycodone HCl/Acetaminophen (Percocet 5-325 mg Tablet) 1 Each Tablet, 1 TAB PO Q4H Prescribed by: NIRMAL ORDONEZ on 09/11/20 0826 Vit W-Ca,Fe,FA(<1 mg) ( Vitamins) 1 Each Tablet, 1 EACH PO DAILY, (Reported) Entered as Reported by: ARPAN PEARSON on 09/03/20 1439 Past Llircko-Cublpn-Ktotuw Hx Patient Social History Tobacco Use?: Yes Tobacco type used: Cigarettes Smoking Status: Current Everyday Smoker Use of E-Cig and/or Vaping dev: No Substance use?: No Alcohol Use?: No Pt feels they are or have been: No Immunizations Up To Date PED Vaccines UTD: Yes Influenza Vaccine Up-to-Date: No; Not Current First/Initial COVID19 Vaccinat: N/A Seasonal Allergies Seasonal Allergies: No Past Medical History Surgeries: No Respiratory: No Cardiac: No Neurological: No Last Menstrual Period: Oct 20, 2022 Reproductive Disorders: No Female Reproductive Disorders: Denies Sexually Transmitted Disease: No HIV/AIDS: No Genitourinary: No Gastrointestinal: No Musculoskeletal: Yes (2017 RIGHT HAND FX) Fractures Endocrine: No HEENT: No Loss of Vision: Denies Hearing Impairment: Denies Cancer: No Psychosocial: Yes Depression Integumentary: No Blood Disorders: No Family Medical History Alcoholism 19 FATHER Arthritis 19 FATHER Asthma 19 FATHER Cardiovascular disease 19 FATHER Completed stroke 19 FATHER 19 MOTHER Coronary thrombosis 19 FATHER Diabetes mellitus 19 FATHER MATERNAL GRANDMOTHER MATERNAL GRANDFATHER PATERNAL GRANDFATHER FH: CHF (congestive heart failure) 19 MOTHER FH: thyroid cancer 19 FATHER Hypertension 19 FATHER 19 MOTHER Myocardial infarction 19 FATHER Neoplasm 19 FATHER Respiratory disorder 19 FATHER (COPD) Thyroid disease 19 FATHER Physical Exam Vital Signs Vital Signs - First Documented 11/10/22 03:45 Temp 36.3 Pulse 96 Resp 16 B/P (MAP) 129/95 (106) Pulse Ox 100 O2 Delivery Room Air Capillary Refill : Less Than 3 Seconds Height, Weight, BMI Height: '" Weight: lbs. oz. kg; 24.00 BMI Method:Stated Progress/Results/Core Measures Suspected Sepsis SIRS Temperature: Pulse: 96 Respiratory Rate: 16 Blood Pressure 129 /95 Mean: 106 Results/Orders Lab Results Laboratory Tests Test 11/10/22 03:40 Range/Units Influenza Type A (RT-PCR) Not Detected Not Detecte Influenza Type B (RT-PCR) Not Detected Not Detecte SARS-CoV-2 RNA (RT-PCR) Not Detected Not Detecte My Orders Orders - ZEUS DIOR MD Covid 19 Inhouse Test (11/10/22 03:56) Influenza A And B By Pcr (11/10/22 03:56) Albuterol Inhaler (Albuterol) (11/10/22 04:38) Vital Signs/I&O 11/10/22 03:45 Temp 36.3 Pulse 96 Resp 16 B/P (MAP) 129/95 (106) Pulse Ox 100 O2 Delivery Room Air Capillary Refill : Less Than 3 Seconds Blood Pressure Mean: 106 Departure Impression Primary Impression: Acute bronchitis Qualified Codes: J20.9 - Acute bronchitis, unspecified Disposition: 01 HOME, SELF-CARE Condition: Stable Departure-Patient Inst. Decision time for Depature: 04:44 Referrals: [facility] (PCP/Family) Primary Care Physician Patient Instructions: Acute Bronchitis Add. Discharge Instructions: Drink plenty of clear liquids to stay well-hydrated. For pain and fever you may take Tylenol (acetaminophen) up to 1000 mg every 6 hours as needed and/or ibuprofen up to 600 mg every 6 hours as needed. You may take [id number] cough and cold medications or decongestants as needed. When using these products, check active ingredients to be sure you are not doubling up on any particular medication. Use your inhaler up to 4 puffs in a 4-hour period of time for shortness of breath or wheezing. Work toward quitting smoking as rapidly as possible. If you are unable to quit smoking on your own, establish with a primary care provider and seek assistance. Return to care if you have worsening symptoms despite following these instructions. All discharge instructions reviewed with patient and/or family. Voiced understanding. Work/School Note: Work Release Form Date Seen in the Emergency Department: Nov 10, 2022 Return to Work: Nov 11, 2022 Restrictions: Return-No Fever (24hrs) ZEUS DIOR MD Nov 10, 2022 04:46
[2022-11-10 05:00] VITALS: BP 123/82
== END 2022-11-10 05:00 | disposition home or self-care (01) ==
LOC: EDUNIT# 03:33 → ER 03:36
DX: J20.9 Acute bronchitis, unspecified (principal); F17.210 Nicotine dependence, cigarettes, uncomplicated; Z20.822 Contact with and (suspected) exposure to COVID-19; Z28.310 Unvaccinated for COVID-19
CPT/HCPCS: 87636; 99283

== ENCOUNTER 2022-12-22 14:59 | Emergency (ER) | payer MEDICAID ==
[~2022-12-22] VITALS: Ht 170 cm; Wt 70.0 kg
--- NOTE | 2022-12-22 15:59 | ED GU-Female ---
General Chief Complaint: Abdominal/GI Problems Stated Complaint: 8 WEEKS | ABD PAIN Nursing Triage Note: PT STATES HAS ABD PAIN, STARTED LAST PM, PT STATES HAS NAUSEA. PT DESCRIBES CRAMPING. PT IS APPROX 8 WEEKS . Source: patient Exam Limitations: no limitations History of Present Illness Date Seen by Provider: Dec 22, 2022 Time Seen by Provider: 15:46 Initial Comments Patient is a 32-year-old female who presents to the emergency room with a chief complaint of epigastric abdominal pain that seems to be radiating down towards the umbilicus. Patient states it started yesterday evening. She has not taken anything for it. She has had some mild nausea. No fevers or chills. No burning with urination, no diarrhea. No abnormal vaginal discharge. She is a . She denies any abdominal trauma. No vaginal bleeding or spotting. She thinks her last menstrual cycle was the end of October. She believes her due date may be August 16. She has not had any care. She is taking vitamins. She does smoke. Timing/Duration: yesterday Severity/Quality: moderate Location: other (EPIGASTRI) Radiation: other (MID ABDOMEN) Activities at Onset: none Prior Genitourinary Problems: none Associated Symptoms: nausea/vomiting (MILD NAUSEA) Allergies and Home Medications Allergies Coded Allergies: amoxicillin (Verified Allergy, Unknown, 11/22/22) Patient Home Medication List Home Medication List Reviewed: Yes Amoxicillin (Amoxicillin) 500 Mg Tablet, 500 MG PO TID Prescribed by: SHAWNA GIBSON on 07/26/21 103 Cephalexin (Cephalexin) 500 Mg Tablet, 500 MG PO TID Prescribed by: SHAWNA GIBSON on 08/20/21 170 Docusate Sodium (Colace) 100 Mg Capsule, 100 MG PO BID Prescribed by: NIRMAL ORDONEZ on 09/11/20 0826 Ibuprofen (Ibuprofen) 800 Mg Tablet, 800 MG PO Q6H PRN for PAIN Prescribed by: NIRMAL ORDONEZ on 09/11/20 08 Metronidazole (Metronidazole) 500 Mg Tablet, 500 MG PO BID Prescribed by: LAURY CUNNINGHAM on 03/14/22 1939 Naproxen (Naprosyn) 500 Mg Tablet, 500 MG PO BID PRN for PAIN-MODERATE (5-7) Prescribed by: SHAWNA GIBSON on 07/26/21 1039 Oxycodone HCl/Acetaminophen (Percocet 5-325 mg Tablet) 1 Each Tablet, 1 TAB PO Q4H Prescribed by: NIRMAL ORDONEZ on 09/11/20 0826 Vit W-Ca,Fe,FA(<1 mg) ( Vitamins) 1 Each Tablet, 1 EACH PO DAILY, (Reported) Entered as Reported by: ARPAN PEARSON on 09/03/20 1439 Review of Systems Review of Systems Constitutional: see HPI EENTM: no symptoms reported Respiratory: no symptoms reported Cardiovascular: no symptoms reported Gastrointestinal: abdominal pain Genitourinary: no symptoms reported : Yes Expected Date of Delivery: Aug 16, 2023 Musculoskeletal: no symptoms reported Skin: no symptoms reported Psychiatric/Neurological: No Symptoms Reported All Other Systemes Reviewed Negative Unless Noted: Yes Past Ihtrwvr-Lcuxpd-Tvtzvv Hx Patient Social History Tobacco Use?: Yes Tobacco type used: Cigarettes Smoking Status: Current Everyday Smoker Substance use?: No Alcohol Use?: No Pt feels they are or have been: No Immunizations Up To Date PED Vaccines UTD: Yes Influenza Vaccine Up-to-Date: No; Not Current First/Initial COVID19 Vaccinat: N/A Second COVID19 Vaccination Jet: N/A Third COVID19 Vaccination Date: N/A Seasonal Allergies Seasonal Allergies: No Past Medical History Surgery/Hospitalization HX: DEPRESSION Surgeries: No Respiratory: No Cardiac: No Neurological: No Last Menstrual Period: Nov 01, 2022 Reproductive Disorders: No Female Reproductive Disorders: Denies Sexually Transmitted Disease: No HIV/AIDS: No Genitourinary: No Gastrointestinal: No Musculoskeletal: Yes (2017 RIGHT HAND FX) Fractures Endocrine: No HEENT: No Loss of Vision: Denies Hearing Impairment: Denies Cancer: No Psychosocial: Yes Bipolar, Depression Integumentary: No Blood Disorders: No Family Medical History Alcoholism 19 FATHER Arthritis 19 FATHER Asthma 19 FATHER Cardiovascular disease 19 FATHER Completed stroke 19 FATHER 19 MOTHER Coronary thrombosis 19 FATHER Diabetes mellitus 19 FATHER MATERNAL GRANDMOTHER MATERNAL GRANDFATHER PATERNAL GRANDFATHER FH: CHF (congestive heart failure) 19 MOTHER FH: thyroid cancer 19 FATHER Hypertension 19 FATHER 19 MOTHER Myocardial infarction 19 FATHER Neoplasm 19 FATHER Respiratory disorder 19 FATHER (COPD) Thyroid disease 19 FATHER Physical Exam Vital Signs Vital Signs - First Documented 12/22/22 15:10 Temp 36.4 Pulse 106 Resp 12 B/P (MAP) 116/78 (91) Pulse Ox 99 Capillary Refill : Less Than 3 Seconds Height, Weight, BMI Height: '" Weight: lbs. oz. kg; 24.00 BMI Method:Stated General Appearance: WD/WN, no apparent distress HEENT: PERRL/EOMI Cardiovascular: regular rate, rhythm Respiratory: lungs clear, normal breath sounds, no respiratory distress, no accessory muscle use Gastrointestinal: normal bowel sounds, soft, tenderness (mild epigastric tenderness; no involuntary guarding. normal BS) Extremities: normal range of motion Neurologic/Psychiatric: alert, normal mood/affect, oriented x 3 Skin: normal color, warm/dry Progress/Results/Core Measures Suspected Sepsis SIRS Temperature: Pulse: 106 Respiratory Rate: 12 Blood Pressure 116 /78 Mean: 91 Results/Orders Lab Results Laboratory Tests Test 12/22/22 15:50 Range/Units Urine Color YELLOW Urine Clarity CLEAR Urine pH 5.5 5-9 Urine Specific Christine >=1.030 1.016-1.022 Urine Protein NEGATIVE NEGATIVE Urine Glucose (UA) NEGATIVE NEGATIVE Urine Ketones NEGATIVE NEGATIVE Urine Nitrite NEGATIVE NEGATIVE Urine Bilirubin NEGATIVE NEGATIVE Urine Urobilinogen 0.2 < = 1.0 MG/DL Urine Leukocyte Esterase NEGATIVE NEGATIVE Urine RBC (Auto) NEGATIVE NEGATIVE Urine RBC NONE /HPF Urine WBC NONE /HPF Urine Squamous Epithelial Cells 10-25 H /HPF Urine Crystals NONE /LPF Urine Bacteria TRACE /HPF Urine Casts NONE /LPF Urine Mucus NEGATIVE /LPF Urine Culture Indicated NO My Orders Orders - BEVERLY BLAKE MD Ua Culture If Indicated (12/22/22 15:55) Vital Signs/I&O 12/22/22 15:10 Temp 36.4 Pulse 106 Resp 12 B/P (MAP) 116/78 (91) Pulse Ox 99 Capillary Refill : Less Than 3 Seconds Blood Pressure Mean: 91 Progress Note : Time: 16:39 Progress Note Bedside hqhcx-fj-ufwc ultrasound does demonstrate single intrauterine live . heart tones are adequate. According to my calculations she measures somewhere between 9 and 10 weeks via crown-rump length. This is nonspecific as the fetus is moving quite a bit. Patient is reassured with motion and obvious heart tones. Urinalysis was obtained which was very concentrated. Patient is educated on drinking lots of water. She is given 650 mg of ibuprofen here in the emergency department. Educated on return precautions to include worsening pain, vomiting, vaginal bleeding to return to the emergency department. All questions are sought and answered. Patient is stable for discharge. Departure Impression Primary Impression: Abdominal pain Qualified Codes: R10.13 - Epigastric pain Additional Impressions: Dehydration 9 weeks gestation of Disposition: 01 HOME, SELF-CARE Condition: Stable Departure-Patient Inst. Decision time for Depature: 16:41 Referrals: [facility] (PCP/Family) Primary Care Physician Patient Instructions: Abdominal Pain, Adult ED, - The Third Month Add. Discharge Instructions: Increase the amount of water you are drinking so that you stay well-hydrated. You really should consider quitting smoking. This is the healthiest thing for you and your baby. Continue your vitamins daily. Keep your follow-up appointment for care at [facility]. You can take Tylenol extra strength 2 tablets every 6 hours as needed for mild to moderate pain. If you develop any increasing pain especially with vomiting, bloody stool, vaginal bleeding or any other emergent, concerning symptoms please come back to the emergency room for reevaluation. Copy Copies To 1: SWATI TERRAZAS KATHRYN M MD Dec 22, 2022 15:59
[2022-12-22 16:08] LABS: BILIRUBIN,URINE NEGATIVE (NEGATIVE); CLARITY,URINE CLEAR; COLOR,URINE YELLOW; GLUCOSE, URINE (UA) NEGATIVE (NEGATIVE); KETONES,URINE NEGATIVE (NEGATIVE); LEUKOCYTE ESTERASE ,URINE NEGATIVE (NEGATIVE); NITRITE,URINE NEGATIVE (NEGATIVE); PH,URINE 5.5 (5-9); PROTEIN,URINE NEGATIVE (NEGATIVE)
[2022-12-22 16:16] LABS: BACTERIA,URINE TRACE /HPF
[2022-12-22] MEDS ORDERED: ACETAMINOPHEN 325 MG TABLET PO ONE (16:45)
[2022-12-22 16:55] VITALS: BP 123/72
== END 2022-12-22 16:55 | disposition home or self-care (01) ==
LOC: EDUNIT# 14:59 → ER 15:01
DX: O26.891 Other specified pregnancy related conditions, first trimester (principal); R10.13 Epigastric pain; O99.281 Endocrine, nutritional and metabolic diseases complicating pregnancy, first trimester; E86.0 Dehydration; O99.331 Smoking (tobacco) complicating pregnancy, first trimester; F17.210 Nicotine dependence, cigarettes, uncomplicated; Z3A.09 9 weeks gestation of pregnancy
CPT/HCPCS: 81000; 99283

== ENCOUNTER 2023-03-28 04:33 | Emergency (ER) | payer MEDICAID ==
[~2023-03-28] VITALS: Ht 175.3 cm; Wt 93.0 kg
[2023-03-28 04:43] VITALS: BP 123/54
[2023-03-28] MEDS ORDERED: LIDO15SO3 MM (05:09)
[2023-03-28] MEDS ORDERED: CEFD300C3 PO (05:09)
--- NOTE | 2023-03-28 05:09 | ED EENT ---
History of Present Illness General Chief Complaint: Oral/Throat Problems Stated Complaint: TOOTHACHE,25 WKS PREG Source: patient History of Present Illness Date Seen by Provider: Mar 28, 2023 Time Seen by Provider: 04:45 Initial Comments PT ARRIVES VIA POV WITH A MALE C/O RIGHT UPPER DENTAL PAIN FOR THE LAST 5-6 HOURS SHE HAS NOT TAKEN ANYTHING FOR PAIN OR APPLIED ANY TOPICAL MEDICATIONS TO THE AREA SHE HAS CHRONIC DENTAL PROBLEMS, SHE DOES NOT SEE A DENTIST NO FEVER PT IS 25 WEEKS PT IS AB 0--STATES NO PROBLEMS WITH THIS . NEXT OB VISIT IS IN 2 WEEKS. HER 2 CHILDREN ARE IN FOSTER CARE. PT SMOKES 1 PPD SHE DENIES DRUG OR ALCOHOL USE, BUT PT HAS TESTED POSITIVE FOR METHAMPHETAMINES ON PRIOR ER VISITS. PCP: [place]. GONZALEZ, [facility] [place]ergies and Home Medications Allergies Coded Allergies: amoxicillin (Verified Allergy, Unknown, 11/22/22) Patient Home Medication List Amoxicillin (Amoxicillin) 500 Mg Tablet, 500 MG PO TID Prescribed by: SHAWNA GIBSON on 07/26/21 1039 Cefdinir (Cefdinir) 300 Mg Capsule, 300 MG PO BID Prescribed by: STEVEN AWAN on 03/28/23 0509 Cephalexin (Cephalexin) 500 Mg Tablet, 500 MG PO TID Prescribed by: SHAWNA GIBSON on 08/20/21 1702 Docusate Sodium (Colace) 100 Mg Capsule, 100 MG PO BID Prescribed by: NIRMAL ORDONEZ on 09/11/20 0826 Ibuprofen (Ibuprofen) 800 Mg Tablet, 800 MG PO Q6H PRN for PAIN Prescribed by: NIRMAL ORDONEZ on 09/11/20 0826 Lidocaine HCl (Lidocaine HCl Viscous) 2 % Solution, 1-2 ML MM [id number] Prescribed by: STEVEN AWAN on 03/28/23 0509 Metronidazole (Metronidazole) 500 Mg Tablet, 500 MG PO BID Prescribed by: LAURY CUNNINGHAM on 03/14/22 193 Naproxen (Naprosyn) 500 Mg Tablet, 500 MG PO BID PRN for PAIN-MODERATE (5-7) Prescribed by: SHAWNA GIBSON on 07/26/21 1039 Oxycodone HCl/Acetaminophen (Percocet 5-325 mg Tablet) 1 Each Tablet, 1 TAB PO Q4H Prescribed by: NIRMAL ORDONEZ on 09/11/20 0826 Vit W-Ca,Fe,FA(<1 mg) ( Vitamins) 1 Each Tablet, 1 EACH PO DAILY, (Reported) Entered as Reported by: ARPAN PEARSON on 09/03/20 1439 Review of Systems Review of Systems Constitutional: no symptoms reported Mouth: see HPI Respiratory: no symptoms reported Cardiovascular: no symptoms reported Gastrointestinal: no symptoms reported : Yes Musculoskeletal: no symptoms reported Skin: no symptoms reported Neurological: No Symptoms Reported Hematologic/Lymphatic: No Symptoms Reported Past Qudavlz-Netyks-Rulkzo Hx Patient Social History Tobacco Use?: Yes Tobacco type used: Cigarettes Smoking Status: Current Everyday Smoker 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 Alcohol Use?: No (DENIES) Immunizations Up To Date PED Vaccines UTD: Yes First/Initial COVID19 Vaccinat: N/A Second COVID19 Vaccination Jet: N/A Third COVID19 Vaccination Date: N/A Seasonal Allergies Seasonal Allergies: No Past Medical History Surgery/Hospitalization HX: DEPRESSION Surgeries: No Respiratory: No Cardiac: No Neurological: No : Yes Hx : 3 Hx Para: 2 (2 CHILDREN IN FOSTER CARE) Hx Total # of Abortions (Sp): 0 Reproductive Disorders: No Female Reproductive Disorders: Denies Sexually Transmitted Disease: No HIV/AIDS: No Genitourinary: No Gastrointestinal: No Musculoskeletal: Yes (2017 RIGHT HAND FX) Fractures Endocrine: No HEENT: Yes (EXTENSIVE DENTAL CARIES) Loss of Vision: Denies Hearing Impairment: Denies Cancer: No Psychosocial: Yes Anxiety, Bipolar, Depression Integumentary: No Blood Disorders: No Family Medical History Alcoholism 19 FATHER Arthritis 19 FATHER Asthma 19 FATHER Cardiovascular disease 19 FATHER Completed stroke 19 FATHER 19 MOTHER Coronary thrombosis 19 FATHER Diabetes mellitus 19 FATHER MATERNAL GRANDMOTHER MATERNAL GRANDFATHER PATERNAL GRANDFATHER FH: CHF (congestive heart failure) 19 MOTHER FH: thyroid cancer 19 FATHER Hypertension 19 FATHER 19 MOTHER Myocardial infarction 19 FATHER Neoplasm 19 FATHER Respiratory disorder 19 FATHER (COPD) Thyroid disease 19 FATHER SOCIAL HISTORY: -SMOKES 1 PPD -ETOH--DENIES USE -DRUG (DENIES USE) BUT UDS + FOR METHAMPHETAMES PT HAS 2 CHILDREN REMOVED FROM HER CUSTODY AND ARE IN FOSTER CARE. Physical Exam Height, Weight, BMI Height: '" Weight: lbs. oz. kg; 24.00 BMI Method:Stated General Appearance: WD/WN, no apparent distress, other (REEKS OF CIGARETTES; DIRTY, UNKEMPT. VERY DRAMATIC) Mouth/Throat: other (EXTENSIVE DENTAL DECAY--MULTIPLE MISSING TEETH AND NEARLY ALL REMAINING TEETH DECAYED DOWN TO GUMS. ) Neck: normal inspection Cardiovascular: regular rate, rhythm Respiratory: normal breath sounds Gastrointestinal: non tender, soft, other (GRAVID UTERUS. NON-TENDER. FHT'S 155) Neurologic/Psychiatric: no motor/sensory deficits, alert, normal mood/affect, oriented x 3 Progress/Results/Core Measures Results/Orders My Orders Orders - STEVEN AWAN DO Ceftriaxone Iv/Im (Rocephin Iv/Im) (03/28/23 05:15) Lidocaine 1% Inj 20 Ml (Xylocaine 1% Inj (03/28/23 05:15) Acetaminophen Tablet (Tylenol Tablet) (03/28/23 05:15) Lidocaine 2% Viscous 15 Ml (Xylocaine Vi (03/28/23 05:15) Heart Tones (03/28/23 05:05) Medications Given in ED Current Medications Medications Dose Ordered Sig/Araceli Route Start Time Stop Time Status Last Admin Dose Admin Acetaminophen 1,000 mg ONCE ONCE PO 03/28/23 05:15 03/28/23 05:16 DC 03/28/23 05:15 1,000 MG Ceftriaxone Sodium 1,000 mg ONCE ONCE IM 03/28/23 05:15 03/28/23 05:16 DC 03/28/23 05:16 1,000 MG Lidocaine HCl 2.1 ml ONCE ONCE INJ 03/28/23 05:15 03/28/23 05:16 DC 03/28/23 05:16 2.1 ML Lidocaine HCl 5 ml ONCE ONCE MM 03/28/23 05:15 03/28/23 05:16 DC 03/28/23 05:15 5 ML Departure Impression Primary Impression: DENTAL CARIES WITH INFECTION Additional Impression: 25 weeks gestation of Disposition: 01 HOME, SELF-CARE Condition: Stable Departure-Patient Inst. Decision time for Depature: 05:05 Referrals: [facility] (PCP/Family) Primary Care Physician Patient Instructions: Tooth Abscess (DC), Tooth Decay ED Add. Discharge Instructions: SOFT FOODS TYLENOL 1 GRAM 4 TIMES A DAY FOR PAIN FOLLOW UP WITH DENTIST THIS WEEK FOR FURTHER CARE--CALL THIS MORNING TO MAKE AN APPOINTMENT All discharge instructions reviewed with patient and/or family. Voiced understanding. Scripts Lidocaine HCl (Lidocaine HCl Viscous) 2 % Solution 1-2 ML MM [id number], #120 ML Prov: STEVEN AWAN DO 03/28/23 Cefdinir (Cefdinir) 300 Mg Capsule 300 MG PO BID, #20 CAP Prov: STEVEN AWAN DO 03/28/23 STEVEN AWAN DO Mar 28, 2023 05:09
[2023-03-28] MEDS ORDERED: cefTRIAXone 1,000 MG VIAL (for IV or IM) IM ONE (05:15)
[2023-03-28] MEDS ORDERED: LIDOCAINE 1% INJ 20 ML VIAL INJ ONE (05:15)
[2023-03-28] MEDS ORDERED: ACETAMINOPHEN 500 MG TAB (TYLENOL) PO ONE (05:15)
[2023-03-28] MEDS ORDERED: LIDOCAINE 2% VISCOUS 15 ML UDC MM ONE (05:15)
== END 2023-03-28 05:29 | disposition home or self-care (01) ==
LOC: EDUNIT# 04:33 → ER 04:38
DX: O99.612 Diseases of the digestive system complicating pregnancy, second trimester (principal); K02.9 Dental caries, unspecified; K04.7 Periapical abscess without sinus; O99.332 Smoking (tobacco) complicating pregnancy, second trimester; F17.210 Nicotine dependence, cigarettes, uncomplicated; Z88.0 Allergy status to penicillin; Z28.310 Unvaccinated for COVID-19; Z3A.25 25 weeks gestation of pregnancy

== ENCOUNTER 2023-06-13 22:38 | Outpatient (CLI) | payer MEDICAID ==
[~2023-06-13] VITALS: Ht 171 cm; Wt 89.5 kg
[~2023-06-13 22:38] MED LIST changes: +CEFD300C3 PO; +LIDO15SO3 MM
[2023-06-13 22:54] VITALS: BP 138/71
[2023-06-13 23:12] VITALS: BP 120/65
[2023-06-13 23:21] LABS: CLARITY,URINE CLEAR; COLOR,URINE ORANGE; GLUCOSE, URINE (UA) TRACE (NEGATIVE); KETONES,URINE TRACE (NEGATIVE); NITRITE,URINE POSITIVE (NEGATIVE); PH,URINE 5.5 (5-9); PROTEIN,URINE 1+ (NEGATIVE)
[2023-06-13 23:22] LABS: BACTERIA,URINE FEW /HPF; BILIRUBIN,URINE 1+ (NEGATIVE); LEUKOCYTE ESTERASE ,URINE NEGATIVE (NEGATIVE); WBC,URINE RARE /HPF
[2023-06-13 23:27] VITALS: BP 119/61
[2023-06-14 00:15] VITALS: BP 119/61
--- NOTE | 2023-06-14 08:10 | Physician Query-Final Dx ---
Clinic Account Progress/Dx Physician Query: Please give diagnosis Please include # weeks gestation Date of Service Jun 13, 2023 at 22:38 ,OctJun 14, 2023 08:10
== END 2023-06-14 00:15 | disposition home or self-care (01) ==
LOC: WSo 22:38 → LDRP 22:38 → WSo 06-14 00:15
PROVIDERS: ATTEND Family Medicine
DX: O62.9 Abnormality of forces of labor, unspecified (principal); Z3A.35 35 weeks gestation of pregnancy
CPT/HCPCS: 81000; 87088; 99213

== ENCOUNTER 2023-07-16 18:14 | Outpatient (CLI) | payer MEDICAID ==
[~2023-07-16] VITALS: Ht 172.7 cm; Wt 91.4 kg
[2023-07-16 18:54] VITALS: BP 129/95
[2023-07-16 19:20] LABS: CLARITY,URINE CLEAR; COLOR,URINE YELLOW; PH,URINE 6.5 (5-9)
[2023-07-16 19:21] LABS: BACTERIA,URINE FEW /HPF; BILIRUBIN,URINE NEGATIVE (NEGATIVE); GLUCOSE, URINE (UA) NEGATIVE (NEGATIVE); KETONES,URINE TRACE (NEGATIVE); LEUKOCYTE ESTERASE ,URINE NEGATIVE (NEGATIVE); NITRITE,URINE NEGATIVE (NEGATIVE); PROTEIN,URINE 1+ (NEGATIVE); RBC,URINE 0-2 /HPF; WBC,URINE 0-2 /HPF
[2023-07-16 19:27] VITALS: BP 125/70
[2023-07-16] MEDS ORDERED: ACETAMINOPHEN 500 MG TABLET PO ONE (19:30)
[2023-07-16] MEDS ORDERED: ACETAMINOPHEN 500 MG TABLET ONE (19:33)
--- NOTE | 2023-07-16 19:52 | OB Triage Report ---
NANI BARRERA MD,RESIDENT 07/16/231951: Standard Progress Note Progress Notes/Assess & Plan Date Seen by a Provider: Jul 16, 2023 Time Seen by a Provider: 07:30 Expected Date of Delivery: Jul 16, 2023 Gestational Age in Weeks: 40 Gestational Age in Days: 0 LMP/GORDON Comment: GORDON: 07/16/23 Progress/Assessment & Plan 33 yo at 40w0d presents to the ED for BL groin pain that is worse when she walks. She says she has had this for the last couple of days and it has progressed. She did not want to try any over the counter medication for pain as she was afraid to harm her baby. She denies LOF, VB or CTX. She can still feel baby move. Pt was seen in clinic earlier this week and found to be 3cm dilated, she has not been scheduled for induction. On exam, she c/o some pain BL groin areas on palpation, no erythema, no swelling, full ROM, abdomen is gravid and non tender. FHT: 140s Moderate variability Accels No decels Ctx 1 in 60 min SVE: 3/50/-3 posterior PLAN: Pt was given tylenol for her pain and counseled on safe pain medication administration during . She was advised to follow-up with her currently scheduled appointment with Dr. Vega on 07/19. She was given return precautions. Final Diagnosis Groin pain in . Diagnosis/Problems Diagnosis/Problems (1) Bilateral groin pain (2) 40 weeks gestation of DEEPAK ELIZALDE MD 07/17/23 1507: Supervisory-Addendum Brief Supervisory Addendum I personally discussed case with resident at the time of her evaluation of the patient, and agree with plan. NANI BARRERA MD,RESIDENT Jul 16, 2023 19:52 DEEPAK ELIZALDE MD Jul 17, 2023 15:07
== END 2023-07-16 19:50 | disposition home or self-care (01) ==
LOC: WSo 18:14 → LDRP 18:15 → WSo 19:50
PROVIDERS: ATTEND Family Medicine
DX: O26.893 Other specified pregnancy related conditions, third trimester (principal); R10.2 Pelvic and perineal pain; Z3A.40 40 weeks gestation of pregnancy
CPT/HCPCS: 81000; 99213

== ENCOUNTER 2023-07-21 17:11 | Inpatient (IN) | payer MEDICAID ==
[~2023-07-21] VITALS: Ht 172.7 cm; Wt 93.7 kg
[2023-07-21] VITALS (15 sets, daily range): BP systolic 117–146; BP diastolic 58–71
[2023-07-21] MEDS ORDERED: MINERAL OIL 30 ML UDC TOP PRN (17:30)
[2023-07-21] MEDS ORDERED: OXYTOCIN DRIP PRE-MIX 500 ML IV SCH (17:30)
[2023-07-21] MEDS ORDERED: LACTATED RINGERS 1,000 ML 500 ML IV PRN (17:30)
[2023-07-21] MEDS: D5 LR 1,000 ML IV SOLN 1,000 ML IV SCH ×2 (17:36→21:53)
[2023-07-21 17:46] LABS: BASOPHILS % (AUTO) 0 % (0-10); EOSINOPHILS % (AUTO) 0 % (0-10); HEMATOCRIT 31 % (35-52); HEMOGLOBIN 9.4 g/dL (11.5-16.0); LYMPHOCYTES # (AUTO) 2.4 10^3/uL (1.0-4.0); LYMPHOCYTES % (AUTO) 21 % (12-44); MEAN CORPUSCULAR HEMOGLOBIN 22 pg (25-34); MEAN CORPUSCULAR HGB CONC 30 g/dL (32-36); MEAN CORPUSCULAR VOLUME 75 fL (80-99); MEAN PLATELET VOLUME 10.4 fL (9.0-12.2); MONOCYTES # (AUTO) 0.6 10^3/uL (0.0-1.0); MONOCYTES % (AUTO) 5 % (0-12); NEUTROPHILS # (AUTO) 8.6 10^3/uL (1.8-7.8); NEUTROPHILS % (AUTO) 73 % (42-75); PLATELET COUNT 274 10^3/uL (130-400); WHITE BLOOD COUNT 11.7 10^3/uL (4.3-11.0)
[2023-07-21] MEDS ORDERED: LIDOCAINE 2% w/EPI 1:100,000 20 ML VIAL INJ ONE (22:00)
[2023-07-21] MEDS ORDERED: CATHETER FLUSH 10 ML SYR IV SCH (22:00)
[2023-07-21] MEDS: OXYTOCIN DRIP PRE-MIX 500 ML IV SCH ×2 (22:11→22:45)
[2023-07-21] MEDS ORDERED: LIDOCAINE 2% w/EPI 1:200,000 20 ML VIAL ONE (22:14)
--- NOTE | 2023-07-21 22:37 | History & Physical-OB ---
OB - Chief Complaint & HPI Date/Time Date of Admission: Date of Admission: Jul 21, 2023 at 17:11 Date seen by a Provider: Jul 21, 2023 Time Seen by a Provider: 18:05 Chief Complaint/History OB-Reason for Admission/Chief: Onset of Labor Hx : 3 Hx Para: 2 Expected Date of Delivery: Jul 16, 2023 Gestational Age in Weeks: 40 Gestational Age in Days: 5 Other reason for admission: Mother has been pepe all day starting at 10 AM but they have been sporatic and getting stronger. Denies any vaginal bleeding or LOF. History of Labs A+, Ab neg, Rub Equivocal HIV/RPR/HepB/C NR GBS neg No 1 hr GTT, was checking blood sugars Allergies and Home Medications Allergies Coded Allergies: amoxicillin (Verified Allergy, Unknown, 11/22/22) Patient Home Medication List Home Medication List Reviewed: Yes Vit W-Ca,Fe,FA(<1 mg) ( Vitamins) 1 Each Tablet, 1 EACH PO DAILY, (Reported) Entered as Reported by: ARPAN PEARSON on 09/03/20 7785 OB - History Hx of Present Care: Yes (But went from 26-35 weeks w/o appt) Ultrasounds: Normal mid trimester US Obstetrical Complications: None Medical Complications: None Obstetrical History Hx : 3 Hx Para: 2 Hx # Term Pregnancies: 2 Number of Living Children: 2 Hx Termination: No Hx Multiple Gestation: No Hx Stillbirth: No Hx Complication: No Hx Induced Hypertens: No Hx Maternal Gestational Diabet: No Delivery History Hx Dystocia: No Hx Large For Gestational Age I: No Hx Small for Gestational Age I: No Hx Section: No Hx Vaginal Delivery Post C-Sec: No Hx Blood Disorders: No Patient Past Medical History Tobacco use Social History/Family History Alcohol Use: Denies Use Recreational Drug Use: No Smoking Cessation: Current every day smoker 2nd Hand Smoke Exposure: No Immunizations Influenza Vaccine Up-to-Date: No; Not Current First/Initial COVID19 Vaccine: N/A Second COVID19 Vaccination: N/A Third COVID19 Vaccination Date: N/A Hepatitis A: No Hepatitis B: No Rubella: not immune RPR/VDRL: Negative GBS Status: Negative HBsAG: Negative OB - Admission Exam Physical Exam Vitals: Vital Signs 07/21/23 07/21/23 19:16 21:50 Temp 36.5 Pulse 87 Resp 16 B/P (MAP) 133/71 (91) O2 Delivery Room Air HEENT: NCAT Heart: Rhythm Normal Lungs: Clear Abdomen: Gravid Cervical Dilatation: 8cm Effacement: 75% Station: -1 Membranes: Intact Heart Rate: 140's Accelerations: Accelerations Present Decelerations: No Decelerations Short Term Variability: Present Correctional Lieutenant Variability: Average (6-25) Contractions on Admission: 6-10 Minutes Apart Labs Laboratory Tests Test 07/21/23 17:31 Range/Units White Blood Count 11.7 H 4.3-11.0 10^3/uL Red Blood Count 4.19 3.80-5.11 10^6/uL Hemoglobin 9.4 L 11.5-16.0 g/dL Hematocrit 31 L 35-52 % Mean Corpuscular Volume 75 L 80-99 fL Mean Corpuscular Hemoglobin 22 L 25-34 pg Mean Corpuscular Hemoglobin Concent 30 L 32-36 g/dL Red Cell Distribution Width 20.7 H 10.0-14.5 % Platelet Count 274 130-400 10^3/uL Mean Platelet Volume 10.4 9.0-12.2 fL Immature Granulocyte % (Auto) 0 % Neutrophils (%) (Auto) 73 42-75 % Lymphocytes (%) (Auto) 21 12-44 % Monocytes (%) (Auto) 5 0-12 % Eosinophils (%) (Auto) 0 0-10 % Basophils (%) (Auto) 0 0-10 % Neutrophils # (Auto) 8.6 H 1.8-7.8 10^3/uL Lymphocytes # (Auto) 2.4 1.0-4.0 10^3/uL Monocytes # (Auto) 0.6 0.0-1.0 10^3/uL Eosinophils # (Auto) 0.0 0.0-0.3 10^3/uL Basophils # (Auto) 0.0 0.0-0.1 10^3/uL Immature Granulocyte # (Auto) 0.0 0.0-0.1 10^3/uL Syphilis Total Antibody Negative Negative OB - Assessment/Plan/Diagnosis Assessment Assessment: active labor Admission Dx Third Trimester 40 week gestation Advance Dilation Admission Status: Inpatient Order (span 2 midnights) Reason for Inpatient Admission: Labor and immediate post care Plan Other Plan 33 yo @ 40.5 wga sent here from clinic with ctxs and advanced dilation Plan - Augmentation with pitocin - GBS neg - Expectant management CONI GONZALEZ MD Jul 21, 2023 22:37
--- NOTE | 2023-07-21 22:40 | OB Labor & Delivery Record ---
Vag Delivery Note Vag Delivery Note Date of Delivery: 07/21/23 Preoperative Diagnosis: Fabiola Gonzales is a (33 /Para / ,Gestational Age (wks)40.5 wga here in active labor Postoperative Diagnosis: Same Attending Surgeon/Physician: Coni Vega MD Telephone Service Adviser: None Anesthesia: Natural Delivery Type: @ 1795 Findings: Viable female , apgars 8/9, weight 8#9, 3870 grams Lacerations: 2nd degree perineal laceration Intact placenta with 3 vessel cord. No nuchal cord, body cord or shoulder dystocia Estimated Blood Loss: 150 ml Complications: None Condition: Stable Description of Procedure: The patient is a 33 year old female who presented in active labor. She was admitted and informed consent was obtained. Her labor course was remarkable for pitocin augmentation. She progressed to complete dilatation and began to push. She was then set up for delivery. The infant's head was delivered atraumatically in the FIRTZ position. The shoulders and remainder of the infant's body were then delivered without difficulty. Upon delivery, the infant was vigorous and placed on maternal chest and the mouth and nares were bulb suctioned and attended to by nursery nurse. After a 2 min delay cord was doubly clamped and cut by FOB and the infant remained on maternal chest. An intact placenta with 3-vessel cord delivered via Kassie and there was found to be minimal bleeding.~ Vigorous fundal massage was performed and the fundus was found to be firm. IV oxytocin was given. Examination of the vagina and perineum revealed a 2nd degree perineal laceration repaired in the usual fashion with 3-0 vicryl rapide suture. Following the repair, sponge, instrument and needle counts were correct. Mom and baby were both in stable condition in the labor suite. Vitals - Labs Vital Signs - I&O Vital Signs Date Time Temp Pulse Resp B/P (MAP) Pulse Ox O2 Delivery O2 Flow Rate FiO2 07/21/23 21:50 87 133/71 (91) Room Air 07/21/23 21:30 85 124/67 (86) Room Air 07/21/23 21:00 92 126/68 (87) Room Air 07/21/23 20:31 105 141/63 (89) Room Air 07/21/23 20:19 92 132/58 (82) Room Air 07/21/23 19:30 88 119/68 (85) Room Air 07/21/23 19:16 36.5 84 16 117/66 (83) Room Air Labs Laboratory Tests 07/21/23 17:31: White Blood Count 11.7H, Red Blood Count 4.19, Hemoglobin 9.4L, Hematocrit 31L, Mean Corpuscular Volume 75L, Mean Corpuscular Hemoglobin 22L, Mean Corpuscular Hemoglobin Concent 30L, Red Cell Distribution Width 20.7H, Platelet Count 274, Mean Platelet Volume 10.4, Immature Granulocyte % (Auto) 0, Neutrophils (%) (Auto) 73, Lymphocytes (%) (Auto) 21, Monocytes (%) (Auto) 5, Eosinophils (%) (Auto) 0, Basophils (%) (Auto) 0, Neutrophils # (Auto) 8.6H, Lymphocytes # (Auto) 2.4, Monocytes # (Auto) 0.6, Eosinophils # (Auto) 0.0, Basophils # (Auto) 0.0, Immature Granulocyte # (Auto) 0.0, Syphilis Total Antibody Negative CONI VEGA MD Jul 21, 2023 22:40
[2023-07-21] MEDS ORDERED: LIDOCAINE 2% w/EPI 1:200,000 20 ML VIAL INJ PRN (22:45)
[2023-07-21] MEDS ORDERED: NICOTINE 14 MG PATCH TD SCH (22:45)
[2023-07-21] MEDS ORDERED: Tetanus/Diphtheria/Pertussis (Acell) ADULT Vaccine 0.5 ML IM ONE (22:45)
[2023-07-21] MEDS ORDERED: MEASLES, MUMPS, RUBELLA VACCINE (MMR) SQ ONE (22:45)
[2023-07-21] MEDS: IBUPROFEN 600 MG TABLET PO SCH (23:14)
[2023-07-21] MEDS: DIBUCAINE 1% OINTMENT 28 GM TUBE TOP PRN (23:15)
[2023-07-21] MEDS: WITCH HAZEL(TUCKS) 40 EA JAR TOP PRN (23:15)
[2023-07-21] MEDS: BENZOCAINE/MENTHOL (DERMOPLAST) 56 ML CAN TP PRN (23:15)
[2023-07-21] MEDS: ACETAMINOPHEN 500 MG TABLET PO SCH (23:15)
[2023-07-22 00:10] VITALS: BP 117/58
[2023-07-22 04:53] VITALS: BP 116/79
[2023-07-22] MEDS: IBUPROFEN 600 MG TABLET PO SCH ×4 (05:00→23:14)
[2023-07-22] MEDS: ACETAMINOPHEN 500 MG TABLET PO SCH ×4 (05:00→23:14)
[2023-07-22] MEDS ORDERED: CATHETER FLUSH 10 ML SYR IV SCH (06:00)
[2023-07-22 06:12] LABS: BASOPHILS % (AUTO) 0 % (0-10); EOSINOPHILS # (AUTO) 0.1 10^3/uL (0.0-0.3); EOSINOPHILS % (AUTO) 1 % (0-10); HEMATOCRIT 23 % (35-52); LYMPHOCYTES % (AUTO) 23 % (12-44); MEAN CORPUSCULAR HEMOGLOBIN 22 pg (25-34); MEAN CORPUSCULAR HGB CONC 29 g/dL (32-36); MEAN CORPUSCULAR VOLUME 76 fL (80-99); MEAN PLATELET VOLUME 10.4 fL (9.0-12.2); MONOCYTES # (AUTO) 0.8 10^3/uL (0.0-1.0); MONOCYTES % (AUTO) 6 % (0-12); NEUTROPHILS # (AUTO) 9.3 10^3/uL (1.8-7.8); NEUTROPHILS % (AUTO) 70 % (42-75); PLATELET COUNT 192 10^3/uL (130-400); WHITE BLOOD COUNT 13.2 10^3/uL (4.3-11.0)
[2023-07-22 06:43] LABS: HEMOGLOBIN 6.6 g/dL (11.5-16.0)
--- NOTE | 2023-07-22 08:34 | Postpartum Progress Note ---
Note Note Day # 1 Subjective: Patient is without complaints. Ambulating, voiding. Tolerating a regular diet without nausea or vomiting. Normal lochia. Pain is well controlled with oral pain medications. Bottle feeding. Objective: Vital Signs 07/22/23 04:53 Temp 36.2 Pulse 83 Resp 18 B/P (MAP) 116/79 (91) Pulse Ox 100 O2 Delivery Room Air Physical Exam: General - Alert and oriented, no apparent distress Lungs - CTAB Heart - RRR no murmur Extremities - no edema Assessment: post- day # 1, status post spontaneous vaginal delivery. Recovering well, hemodynamically stable Severe acute blood loss anemia Plan: Routine care. Encourage ambulation. Discussed transfusion due to hgb 6.6, she declined, is open to IV iron, started today. Plan for discharge tomorrow Vitals - Labs Vital Signs - I&O Vital Signs Date Time Temp Pulse Resp B/P (MAP) Pulse Ox O2 Delivery O2 Flow Rate FiO2 07/22/23 04:53 36.2 83 18 116/79 (91) 100 Room Air 07/22/23 00:10 36.8 86 20 117/58 (77) 98 Room Air 07/21/23 23:59 81 117/63 (81) Room Air 07/21/23 23:44 90 122/71 (88) Room Air 07/21/23 23:29 79 121/58 (79) Room Air 07/21/23 23:14 36.6 95 18 130/60 (83) 99 Room Air 07/21/23 22:59 83 129/60 (83) Room Air 07/21/23 22:44 82 129/63 (85) Room Air 07/21/23 22:29 107 146/67 (93) Room Air 07/21/23 22:02 106 134/63 (86) Room Air 07/21/23 21:50 87 133/71 (91) Room Air 07/21/23 21:30 85 124/67 (86) Room Air 07/21/23 21:00 92 126/68 (87) Room Air 07/21/23 20:31 105 141/63 (89) Room Air 07/21/23 20:19 92 132/58 (82) Room Air 07/21/23 19:30 88 119/68 (85) Room Air 07/21/23 19:16 36.5 84 16 117/66 (83) Room Air I & O 07/22/23 07:00 Intake Total 980 ml Balance 980 ml Labs Laboratory Tests 07/21/23 17:31: White Blood Count 11.7H, Red Blood Count 4.19, Hemoglobin 9.4L, Hematocrit 31L, Mean Corpuscular Volume 75L, Mean Corpuscular Hemoglobin 22L, Mean Corpuscular Hemoglobin Concent 30L, Red Cell Distribution Width 20.7H, Platelet Count 274, Mean Platelet Volume 10.4, Immature Granulocyte % (Auto) 0, Neutrophils (%) (Auto) 73, Lymphocytes (%) (Auto) 21, Monocytes (%) (Auto) 5, Eosinophils (%) (Auto) 0, Basophils (%) (Auto) 0, Neutrophils # (Auto) 8.6H, Lymphocytes # (Auto) 2.4, Monocytes # (Auto) 0.6, Eosinophils # (Auto) 0.0, Basophils # (Auto) 0.0, Immature Granulocyte # (Auto) 0.0, Syphilis Total Antibody Negative 07/22/23 05:46: White Blood Count 13.2H, Red Blood Count 3.02L, Hemoglobin 6.6#*L, Hematocrit 23L, Mean Corpuscular Volume 76L, Mean Corpuscular Hemoglobin 22L, Mean Corpuscular Hemoglobin Concent 29L, Red Cell Distribution Width 20.5H, Platelet Count 192, Mean Platelet Volume 10.4, Immature Granulocyte % (Auto) 1, Neutrophils (%) (Auto) 70, Lymphocytes (%) (Auto) 23, Monocytes (%) (Auto) 6, Eosinophils (%) (Auto) 1, Basophils (%) (Auto) 0, Neutrophils # (Auto) 9.3H, Lymphocytes # (Auto) 3.0, Monocytes # (Auto) 0.8, Eosinophils # (Auto) 0.1, Basophils # (Auto) 0.0, Immature Granulocyte # (Auto) 0.1 DEEPAK ELIZALDE MD Jul 22, 2023 08:34
[2023-07-22] MEDS ORDERED: IRON SUCROSE 200 MG/10 ML VIAL IV SCH (09:00)
[2023-07-22 09:25] VITALS: BP 127/77
[2023-07-22] MEDS: DOCUSATE SODIUM 100 MG CAPSULE PO SCH ×2 (09:31→20:37)
[2023-07-22] MEDS: PRENATAL VITAMIN TABLET PO SCH (09:32)
[2023-07-22 12:20] VITALS: BP 124/59
[2023-07-22] MEDS ORDERED: CALCIUM CARBONATE 500 MG CHEW TABLET PO PRN (16:15)
[2023-07-22 17:45] VITALS: BP 113/63
[2023-07-22] MEDS ORDERED: NICOTINE 14 MG PATCH TD SCH (21:00)
[2023-07-22 23:19] VITALS: BP 109/69
[2023-07-23] MEDS: IBUPROFEN 600 MG TABLET PO SCH ×2 (05:01→12:39)
[2023-07-23] MEDS: ACETAMINOPHEN 500 MG TABLET PO SCH ×2 (05:01→12:39)
[2023-07-23 05:04] VITALS: BP 127/62
[2023-07-23] MEDS: PRENATAL VITAMIN TABLET PO SCH (09:53)
[2023-07-23] MEDS: DOCUSATE SODIUM 100 MG CAPSULE PO SCH (09:53)
[2023-07-23] MEDS ORDERED: IBUP-844 PO (10:12)
[2023-07-23] MEDS ORDERED: FERR325T18 PO (10:12)
--- NOTE | 2023-07-23 10:16 | Discharge Summary ---
Discharge Summary Hospital Course Hospital Course Date of Admission: Jul 21, 2023 at 17:11 Admission Diagnosis : at 40w5d with advanced cervical dilation Anemia of Family Physician/Provider: Izabela Vega MD Date of Discharge: 07/23/23 Discharge Diagnosis: at 40w5d with advanced cervical dilation s/p on 07/21/23 following augmentation of labor Anemia of and acute blood loss anemia Hospital Course: 07/21/23 uncomplicated. Hb 9.4 on admission and 6.6 post delivery. Patient asymptomatic with normal vital signs. Received 1 dose of IV iron and started on po iron at DC. Rubella equivocal. Patient declined MMR. Routine course. Labs and Pending Lab Test: Laboratory Tests 07/21/23 17:31: White Blood Count 11.7H, Red Blood Count 4.19, Hemoglobin 9.4L, Hematocrit 31L, Mean Corpuscular Volume 75L, Mean Corpuscular Hemoglobin 22L, Mean Corpuscular Hemoglobin Concent 30L, Red Cell Distribution Width 20.7H, Platelet Count 274, Mean Platelet Volume 10.4, Immature Granulocyte % (Auto) 0, Neutrophils (%) (Auto) 73, Lymphocytes (%) (Auto) 21, Monocytes (%) (Auto) 5, Eosinophils (%) (Auto) 0, Basophils (%) (Auto) 0, Neutrophils # (Auto) 8.6H, Lymphocytes # (Auto) 2.4, Monocytes # (Auto) 0.6, Eosinophils # (Auto) 0.0, Basophils # (Auto) 0.0, Immature Granulocyte # (Auto) 0.0, Syphilis Total Antibody Negative 07/22/23 05:46: White Blood Count 13.2H, Red Blood Count 3.02L, Hemoglobin 6.6#*L, Hematocrit 23L, Mean Corpuscular Volume 76L, Mean Corpuscular Hemoglobin 22L, Mean Corpuscular Hemoglobin Concent 29L, Red Cell Distribution Width 20.5H, Platelet Count 192, Mean Platelet Volume 10.4, Immature Granulocyte % (Auto) 1, Neutrophils (%) (Auto) 70, Lymphocytes (%) (Auto) 23, Monocytes (%) (Auto) 6, Eosinophils (%) (Auto) 1, Basophils (%) (Auto) 0, Neutrophils # (Auto) 9.3H, Lymphocytes # (Auto) 3.0, Monocytes # (Auto) 0.8, Eosinophils # (Auto) 0.1, Basophils # (Auto) 0.0, Immature Granulocyte # (Auto) 0.1 Discharge Meds Vitamins ( Vit W-Ca,Fe,FA(<1 mg)) 1 Each Tablet 1 Each PO DAILY Ibuprofen 600mg every 6h as needed. Ferrous sulfate 325mg twice daily Assessment/Pt DC Instructions Follow up with Dr. Vega in 6wk Discharge Diet: No Restrictions Discharge Physical Examination Allergies: Coded Allergies: amoxicillin (Verified Allergy, Unknown, 11/22/22) General Appearance: No Apparent Distress, WD/WN HEENT: PERRL/EOMI Respiratory: No Respiratory Distress Cardiovascular: Regular Rate, Rhythm Skin: Normal Color, Warm/Dry Neurologic/Psychiatric: Alert, Oriented x3 SWATI TERRAZAS DO Jul 23, 2023 10:16
[2023-07-23] MEDS: WITCH HAZEL(TUCKS) 40 EA JAR TOP PRN (11:10)
[2023-07-23] MEDS: BENZOCAINE/MENTHOL (DERMOPLAST) 56 ML CAN TP PRN (11:10)
[2023-07-23] MEDS: DIBUCAINE 1% OINTMENT 28 GM TUBE TOP PRN (11:10)
[2023-07-23 13:15] VITALS: BP 120/71
== END 2023-07-23 15:00 | disposition home or self-care (01) | DRG 806 ==
LOC: LDRP 17:11
PROVIDERS: ADMIT Family Medicine; ATTEND Family Medicine
PROC: 10E0XZZ Delivery of Products of Conception, External Approach (ICD-10-PCS; principal; 2023-07-21)
PROC: 0KQM0ZZ Repair Perineum Muscle, Open Approach (ICD-10-PCS; 2023-07-21)
DX: O48.0 Post-term pregnancy (principal); D62 Acute posthemorrhagic anemia; Z37.0 Single live birth; O62.0 Primary inadequate contractions; O99.334 Smoking (tobacco) complicating childbirth; F17.210 Nicotine dependence, cigarettes, uncomplicated; Z3A.40 40 weeks gestation of pregnancy; O70.1 Second degree perineal laceration during delivery; O90.81 Anemia of the puerperium
CPT/HCPCS: 36415; 85025; 86780; 86850; 86900; 86901